=== PATIENT | male | born 1925 | race Caucasian/White ===

== ENCOUNTER 2016-07-09 18:32 | Inpatient (IN) ==
[2016-07-09] MEDS ORDERED: Naloxone 0.4 MG/ML INJ IVP PRN (20:52)
--- NOTE | 2016-07-09 21:06 | Internal Med History&Physical ---
<Brianna Elam - Last Filed: 07/09/16 21:30> Date of Encounter: 07/09/16 Time of Encounter: 20:59 Assessment and Plan (1) CAD (coronary artery disease) Current visit: Yes Status: Acute with hx NSTEMI. Presented to OSH with Chest pain.No acute ST changes reported, initial troponin 0.03. Cont to trend troponin, repeat EKG, consult Cardiology. Cont home ASA, plavix, nitrate Qualifiers: Qualified Code(s): I25.10 - Atherosclerotic heart disease of [place] coronary artery without angina pectoris (2) Congestive heart failure Current visit: No Status: Acute per hx. LAst TTE 12/2015 with EF 25%. OSH CXR with pulm edema.BNP 407. Received IV lasix prior to arrival to [place]. Cont IV lasix, repeat echo, consult cardiology Qualifiers: Congestive heart failure type: unspecified congestive heart failure type Congestive heart failure chronicity: acute Qualified Code(s): I50.9 - Heart failure, unspecified (3) COPD (chronic obstructive pulmonary disease) Current visit: No Status: Chronic per hx. No evidence of exacerbation on exam. Cont home inhaler. Qualifiers: COPD type: unspecified COPD Qualified Code(s): J44.9 - Chronic obstructive pulmonary disease, unspecified (4) DVT prophylaxis Current visit: Yes Status: Acute heparin Internal Medicine - H&P: HPI Admitted From: Home Plans for Post Hospital Care: Home History of present illness: Mr. Correa is a 89 year old male CHF, COPD and dementia who presented to OSH with complaints of chest pain and SOB. He was transferred to [facility] for further work-up and treatment. Information obtained from chart review and patient report. Patient reports constat, sharp chest pain that started day of admission that radiated to up neck and to bilateral jaws. Nothing made worse and he's not sure what helped CP. He says he forget to take lasix either today or yesterday. He does feel a little SOB, worse with exertion. Also reports productive cough Past Med Surg Social Fam HX - Past Medical History Medical history: aortic aneurysm, arthritis, COPD, coronary artery disease, DVT , GI bleed, hyperlipidemia, hypertension, renal disease, other Psychiatric history: anxiety - Past Surgical History Surgical History: appendectomy, carotid endarterectomy, cholecystectomy, hip replacement, knee replacement, other - Social History Smoking Status: Current every day smoker Smokeless Tobacco Status: No Alcohol use: none Drug use: none - Family History Father Twin of Family Member: Yes, Fraternal Living Status: Age at : 72 Hx Family Cardiac Disorders: Yes Hx Family Respiratory Disorders: Yes Hx Family Cancer: Yes Hx Family GI Disorders: No Hx Family Genitourinary Disorders: No Hx Family Endocrine Disorder: No Hx Family Musculoskeletal Disorders: No Hx Family Neuromuscular Disorders: No Hx Family Neurologic Disorders: No Hx Family HEENT Disorders: No Hx Family Autoimmune Disorders: No Hx Family Reproductive Disorders: No Hx Family Psychosocial Disorders: No Hx Family Medical Disorders: No - Additional Family History Additional family history: reviewed and non-contributory Internal Medicine - H&P: Meds Aspirin 81 mg PO DAILY 10/18/14 [History] Docusate [Colace] 200 mg PO DAILY 10/18/14 [History] Ipratropium/Albuterol Neb [Duoneb] 3 ml IH Q4H PRN 10/18/14 [History] Metoprolol XL (24 HR) Succ [Toprol XL] 50 mg PO DAILY 10/18/14 [History] Nitroglycerin [Nitrostat] 0.4 mg SL PRN PRN 10/18/14 [History] Cyanocobalamin (B-12) [Vitamin B12] 1,000 mcg PO DAILY #90 tablet 09/05/15 [Rx] Albuterol Sulfate [Proair Hfa] 1 puff IH Q4-6H PRN #1 inh 10/29/15 [Rx] Allopurinol [Zyloprim] 100 mg PO Q48H 12/24/15 [History] Aminocaproic Acid [Amicar] 500 mg PO BID 12/24/15 [History] Clopidogrel [Plavix] 75 mg PO DAILY 12/24/15 [History] Doxazosin [Cardura] 1 mg PO DAILY 12/24/15 [History] Furosemide [Lasix] 40 mg PO DAILY 12/24/15 [History] Oxycodone HCl [Oxaydo] 5 mg PO Q6H PRN 12/24/15 [History] Octreotide Acetate,Mi-Spheres [Sandostatin Lar [place]] 10 mg IM QMONTH #1 vial [Rx] Folic Acid 1 mg PO DAILY #90 tablet 05/30/16 [Rx] Clotrimazole [Mycelex Kentrell] 10 mg MM QID 07/10/16 [History] Doxepin HCl [Silenor] 3 mg PO HS 07/10/16 [History] Gabapentin [Neurontin] 300 mg PO TID 07/10/16 [History] Isosorbide MONOnitrate (24 HR) [Imdur] 30 mg PO QPM 07/10/16 [History] Isosorbide MONOnitrate (24 HR) [Imdur] 60 mg PO QAM 07/10/16 [History] Pantoprazole Sodium [Protonix] 40 mg PO DAILY 07/10/16 [History] Allergies gabapentin Allergy (Verified 01/22/16 00:34) Hallucinating Penicillins Allergy (Verified 01/22/16 00:34) Rash morphine Adverse Reaction (Verified 01/22/16 00:34) Anxiety All Systems PM: A 10-system review of systems was performed and is negative for pertinent findings except as documented above in the HPI. - Constitutional Constitutional: no chills, no fever(s), no night sweats - EENT Eyes: no change in vision, no discharge, no pain, no photophobia Ears: no ear discharge, no ear pain, no tinnitus Nose, mouth and throat: no dysphagia, no nasal discharge, no neck pain, no sore throat - Cardiovascular Cardiovascular ROS IM: chest pain, dyspnea on exertion - Respiratory Respiratory: no wheezing, no excessive phlegm production - Gastrointestinal Gastrointestinal: no abdominal pain, no diarrhea, no hematemesis, no hematochezia, no melena, no nausea, no vomiting - Musculoskeletal Musculoskeletal ROS IM: no numbness, no tingling - Integumentary Integumentary IM: no rash, no unusual bruising - Neurological Neurological ROS: no confusion, no convulsions, no focal weakness, no numbness, no tingling, no tremor(s) - Hematologic/Lymphatic Hematologic/Lymphatic: no easy bruising - Constitutional Vitals: Temp Pulse Resp BP Pulse Ox 98.2 F 82 15 124/64 97 07/09/16 20:02 07/09/16 20:02 07/09/16 20:02 07/09/16 20:02 07/09/16 20:02 - Head Head exam: Present: atraumatic, normocephalic - Eye Eye exam: Present: PERRL, conjuntiva pink, sclera anicteric Pupils: Present: PERRL - Neck Neck exam general surgery: Present: supple, trachea midline. Absent: lymphadenopathy - Respiratory Respiratory exam: Absent: accessory muscle use, CTAB, rales, wheezes - Cardiovascular Cardiovascular exam: Present: RRR, +S1, +S2. Absent: diastolic murmur, gallop, rubs, systolic murmur - GI/Abdominal GI/Abdominal exam: Present: normal bowel sounds, soft, no peritoneal signs. Absent: distended, tenderness - Extremities Exam Extremities exam: Present: warm, radial pulses palpable and symetrical. Absent : calf tenderness, cyanotic, pedal edema - Neurological Exam Neurological exam: Present: CN II-XII intact, oriented X3, no focal deficits. Absent: pronater drift, facial droop, speech deficit - Skin Skin exam: Present: dry, intact <Campos Teresa - Last Filed: 07/10/16 10:25> Date of Encounter: 07/09/16 Internal Medicine - H&P: HPI Chief complaint: Chest pain Admitted From: Emergency Dept Plans for Post Hospital Care: Home History of present illness: Mr. Correa is a 89 year old male with medical history significant for iron deficiency anemia, recurrent GI bleed/colonic resection of cecal angiodysplasia/ monthly IV octreotide injections, folic acid/B12 deficiencies, COPD home oxygen dependent, CVA/TIA, HTN, HLD, PAD/fem-pop bypass, CAD/ischCMP/systCHF/LVEF<30%, DVTs/PE, clotting disorder unspecified, OA/OP/RA, GERD, obesity, nicotine dependency, etc.. Patient is admitted to [facility] as a hospital transfer from [place] emergency department with concerns of chest pain. The patient originally presented via EMS services from home with concerns of generalized weakness and complained of shortness of breath at rest but aggravated with any activity. Multiple complaints for product including back pain and finally chest pain. The patient also reported acute exacerbation of his chronic cough but is provided this continued to smoke. Cough and shortness of breath seemed to be aggravated with lying flat in exertion and improved with oxygen therapy and bronchodilator therapy. Cough is nonproductive. He denied any fevers chills or sweats with these complaints. Patient reported intermittent chest discomfort for 2 weeks period of time bleeding. His presentation. The area and underwent a chest x-ray which revealed evidence for faint patchy airspace opacities seen diffusely throughout both lungs suggestive of pulmonary edema no discrete infiltrate was otherwise seen. A CT of the head was done due to confusion and headache for the same two- week period of time but revealed only acute/chronic right sphenoid sinusitis with surrounding mucoperiosteal reaction. Evidence of severe chronic ischemic changes with chronic infarcts were also noted with areas of encephalomalacia in bilateral hemispheres. Prior to transfer to the [facility] the patient received intravenous furosemide which produced a good diuresis and eats some of his respiratory complaints. His O2 saturations improved from 92% on room air to 97 % with oxygen support. Initial laboratory noted a white count of 12.5 hemoglobin 8.1 hematocrit 25.9 which is fairly stable trending back for the last year or more. Differential showed an increase in neutrophils. PT was 12.4 INR 1.1. Troponin 0.03 with BNP 427. Metabolic panel noted a BUN of 34 creatinine 1.9 GFR 34. Urinalysis was negative. EKG showed left bundle branch block. Normal sinus rhythm. No acute ischemic changes. The patient and family opted for transfer to [facility] for continuity of care and evaluations for rule out for ACS/UA associated flash pulmonary edema. The patient is at risk for further clinical decline due to his significant comorbidities advanced age and frailty. Workup and treatments will proceed. The patient was visited and interviewed and examined. I examined this patient and my medical decision-making was reviewed with the Advanced Practice Nurse, MS. Brianna Elam. For this encounter, I have reviewed the [employer] CMO documentation, treatment plan, and medical decision making. I have had face to face time with this patient. Cumulative laboratory and radiographic database was reviewed, considered and discussed. I agree with the documented findings, disposition and treatment plan as described except to the extent set forth below. . Consultative opinions will be sought as clinical circumstances justify. Plan of care has been discussed in detail with the patient and questions addressed. Hospital course will be dependent upon clinical findings, treatment response and /or potential consultative interventions. Given the patient's presenting concerns, past medical history, clinical findings and symptoms, he is admitted at this time to undergo further evaluation and disposition. Condition is serious. Prognosis is guarded. CODE STATUS is full. All Systems PM: A 10-system review of systems was performed and is negative for pertinent findings except as documented above in the HPI. - Constitutional Vitals: Temp Pulse Resp BP Pulse Ox 97.3 F L 85 24 111/56 100 07/10/16 08:15 07/10/16 08:15 07/10/16 08:15 07/10/16 08:15 07/10/16 08:20 Vital Signs Temp Pulse Resp BP Pulse Ox 07/10/16 08:20 100 07/10/16 08:15 97.3 F L 85 24 111/56 100 07/10/16 07:54 24 99 07/10/16 07:35 97.9 F 88 24 95/46 99 07/10/16 04:45 98.4 F 91 17 117/57 99 07/10/16 00:40 98.4 F 90 19 88/51 98 07/09/16 23:30 18 98 07/09/16 20:02 98.2 F 82 15 124/64 97 Intake and Output 07/09/16 07/10/16 07/10/16 23:59 07:59 15:59 Intake Total 0 / 0 0 / 0 0 / 0 Output Total 350 / 350 100 / 100 Balance 0 / 0 -350 / -350 -100 / -100 Intake: Oral 0 / 0 0 / 0 0 / 0 Output: Urine 350 / 350 100 / 100 Other: Meal NPO Percent of Meal Consumed 0% Weight 68.5 kg Internal Med - H&P Results - Labs CBC & Chem 7: 07/10/16 05:46 07/10/16 05:46 Labs: Short CBC 07/10/16 Range/Units 05:46 WBC 12.5 H (4.3-11.1) K/mcL Hgb 8.0 L (12.9-16.9) g/dL Hct 26.8 L (37.5-50.1) % Plt Count 182 (140-400) K/mcL Neutrophils # 10.1 H (1.6-8.9) K/mcL BMP 07/10/16 05:46 Sodium 139 Potassium 4.4 Chloride 104 Carbon Dioxide 24 BUN 36 H Creatinine 1.78 H Glucose 105 H Calcium 8.7 Cardiac Enzymes 07/09/16 07/10/16 Range/Units 21:46 05:46 Troponin I 0.02 0.02 (0-0.03) ng/mL Liver Function 07/10/16 Range/Units 05:46 Total Bilirubin 0.9 D (0.2-1.2) mg/dL AST 10 (5-34) Units/L ALT < 6 (0-55) Units/L Alkaline Phosphatase 62 (38-126) Units/L Albumin 3.5 (3.5-5.0) g/dL Abnormal lab results WBC 12.5 K/mcL (4.3-11.1) H 07/10/16 05:46 RBC 2.89 M/mcL (4.19-5.50) L 07/10/16 05:46 Hgb 8.0 g/dL (12.9-16.9) L 07/10/16 05:46 Hct 26.8 % (37.5-50.1) L 07/10/16 05:46 MCH 27.7 pg (28.0-33.3) L 07/10/16 05:46 MCHC 29.9 g/dL (31.6-35.5) L 07/10/16 05:46 Neutrophils # 10.1 K/mcL (1.6-8.9) H 07/10/16 05:46 Monocytes # 1.6 K/mcL (0.0-1.3) H 07/10/16 05:46 BUN 36 mg/dL (8-26) H 07/10/16 05:46 Creatinine 1.78 mg/dL (0.72-1.25) H 07/10/16 05:46 Est GFR ( Amer) 44 (> 60) L 07/10/16 05:46 Est GFR (Non-Af Amer) 36 (> 60) L 07/10/16 05:46 Glucose 105 mg/dL (70-99) H 07/10/16 05:46 Globulin 3.8 g/dL (2.4-3.5) H 07/10/16 05:46 Albumin/Globulin Ratio 0.9 (1.1-2.2) L 07/10/16 05:46 - Attending Attestation My signature below is to certify that this patient is under my care and that I, or nurse practitioner working with me, has had a [id number] encounter with this patient.
[2016-07-09] MEDS ORDERED: Ipratropium/Albuterol Neb 3 ML IH PRN (21:29)
[2016-07-09] MEDS: *HR* Heparin 5,000 UNIT/ML VIAL SQ SCH (23:03)
[2016-07-09] MEDS: Budesonide/Formoterol 160/4.5 MDI IH SCH (23:26)
[2016-07-10] MEDS: Nitroglycerin 0.4 MG TAB.SUBL SL PRN (02:27)
[2016-07-10] MEDS ORDERED: Acetaminophen 325 MG TABLET PO PRN (05:14)
[2016-07-10] MEDS: *HR* Heparin 5,000 UNIT/ML VIAL SQ SCH ×3 (05:34→21:06)
[2016-07-10 06:33] LABS: Basophils % 0.3 %; Eosinophils # 0.1 K/mcL (0.0-0.6); Eosinophils % 0.9 %; Hematocrit 26.8 % (37.5-50.1); Immature Granulocytes % 0.4 % (0-4); Lymphocytes # 0.6 K/mcL (0.6-4.6); Mean Corpuscular HGB Conc 29.9 g/dL (31.6-35.5); Mean Corpuscular Hemoglobin 27.7 pg (28.0-33.3); Mean Corpuscular Volume 92.7 fL (83.0-100.0); Mean Platelet Volume 10.3 fL (9.4-12.4); Monocytes # 1.6 K/mcL (0.0-1.3); Monocytes % 13.1 %; Neutrophils # 10.1 K/mcL (1.6-8.9); Platelet Count 182 K/mcL (140-400); Red Blood Count 2.89 M/mcL (4.19-5.50); Red Cell Distribution Width 14.1 % (11.5-14.5); Segmented Neutrophils % 80.3 %
[2016-07-10 06:48] LABS: Albumin 3.5 g/dL (3.5-5.0); Albumin/Globulin Ratio 0.9 (1.1-2.2); Alkaline Phosphatase 62 Units/L (38-126); Aspartate Amino Transferase 10 Units/L (5-34); BUN/Creatinine Ratio 20 (6-26); Bilirubin,Total 0.9 mg/dL (0.2-1.2); Blood Urea Nitrogen 36 mg/dL (8-26); Calcium 8.7 mg/dL (8.6-10.8); Carbon Dioxide 24 mEq/L (19-29); Chloride 104 mEq/L (98-109); Globulin 3.8 g/dL (2.4-3.5); Glucose 105 mg/dL (70-99); Osmolality,Calculated 297 (280-300); Potassium 4.4 mEq/L (3.5-4.5); Sodium 139 mEq/L (136-145); Total Protein 7.3 g/dL (6.0-8.3); eGFR For African Americans 44 (> 60); eGFR For Non-African Americans 36 (> 60)
[2016-07-10 06:49] LABS: Alanine Aminotransferase < 6 Units/L (0-55)
[2016-07-10] MEDS: Budesonide/Formoterol 160/4.5 MDI IH SCH ×2 (07:53→19:43)
[2016-07-10] MEDS: Furosemide 20 MG/2 ML VIAL IVP SCH ×2 (08:29→21:06)
[2016-07-10] MEDS: Aspirin 81 MG TAB.CHEW PO SCH (08:29)
[2016-07-10] MEDS: amLODIPine 5 MG TABLET PO SCH (08:29)
[2016-07-10] MEDS: Isosorbide MONOnitrate (24 HR) 60 MG TAB.ER.24H PO SCH (08:29)
[2016-07-10] MEDS: Metoprolol XL (24 HR) Succ 50 MG TAB.ER.24H PO SCH (08:29)
--- NOTE | 2016-07-10 10:45 | Cardiology Consult Note ---
Date of Encounter: 07/10/16 Time of Encounter: 09:00 Assessment and Plan (1) Acute on chronic systolic CHF (congestive heart failure), NYHA class 3 Current Visit: Yes Status: Acute Per cardiology: -Known ischemic cardiomyopathy. -Echocardiogram 12/1015 with LVEF 25%, severe LV global systolic dysfunction, left ventricle moderately dilated, indeterminate diastolic function, RV not well visualized, mild MR, mild NV, all salgado hypokinetic. -Troponins negative x3. -Patient admits to missing a dose of lasix at home and presents with increased shortness of breath. -On lasix IV BID per primary service. ON toprol. Unable to add KATHERIN/ARB due to renal function. -Patient had previously declined defibrillator. Discussed at length with patient regarding increased risk of sudden cardiac due to cardiomyopathy. Explained at length regarding defribrillator. At this time, patient still refusing defibrillator. -BNP 427 on admission. -Patient's weight 04/2016 146.6 pounds and weight this admission 150.7 pounds. -Patient currently net negative 350ml. Patient states breathing improved. No pedal edema noted. -Recommend continuing IV diuresis for now, -Do not feel that repeat echocardiogram would be of benefit due to known cardiomyopathy and patient's refusal for defibrillator. -Cardiology will sign off and will follow in outpatient setting. FOllow up set. (2) CAD (coronary artery disease) Current Visit: Yes Status: Chronic Per cardiology: -Known history of severe CAD with cath 2014 with 95% stenosis RCA, 75% ostial RCA, 60% LAD calcification, 50% mid circ. -CAD not ammendable to CABG or PCI. Medical management was recommended. -Troponins negative x3. -ECG with not acute ischemic changes -On asa, plavix, beta esperanza, and imdur. Currently not on statin and no statin noted on home medication list. -Of note, AST and ALT within normal limits. -No current chest pain. -Has chronic angina. -Continue current regimen. -Will add statin due to significant CAD. -Follow up in outpatient setting. Qualifiers: Coronary Disease-Associated Artery/Lesion type: [place] artery [place] vs. transplanted heart: [place] heart Associated angina: with stable angina (3) Chronic kidney disease Current Visit: No Status: Chronic Per cardiology: -KNown CKD. -Creatinine 1.78 this admission -Baseline creatiine 1.7-2.1. -Cautious diuresis with CKD. -Management per primary service. Qualifiers: Chronic kidney disease stage: stage 3 (moderate) Qualified Code(s): N18.3 - Chronic kidney disease, stage 3 (moderate) Discussion w patient/family: The assessment and plan as outlined above was discussed with the patient who expressed understanding and agreement. All questions were answered. Thank you for involving us in the care of your patient. Please call with any questions. Discussed and reviewed with . History of Present Illness Consult date: 07/09/16 Requesting physician: Brianna Elam Consult reason: chf Chief complaint: shortness of breath History of present illness: Mr. 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 Patient with known ischemic cardiomyopathy with EF 25% . Patient has histroically refused defibrillator. Patient with known severe 3 vessel ischemic disease not amendable to CABG or PCI. Patient states he was in his normal state of health, when he became increasing short of breath. Patient presented to [facility] and was subsequently transferred to [facility]. Cardiology was consulted. Patient states he was extremely short of breath at home and his could hear his breathing in the other room. Today patient states breathing is much better. Patient denies peripheral edema. Patient reports he thinks he missed a dose of his lasix at home. Patient denies current chest pain. Patient states he has chronic angina. Past Med Surg Social Fam HX - Past Medical History Attestation: Yes The following information was validated with the patient. Source: patient, old records reviewed Medical history: aortic aneurysm, arthritis, COPD, coronary artery disease, DVT , GI bleed, hyperlipidemia, hypertension, renal disease, other Psychiatric history: anxiety - Past Surgical History Surgical History: appendectomy, carotid endarterectomy, cholecystectomy, hip replacement, knee replacement, other - Social History Smoking Status: Current every day smoker Smokeless Tobacco Status: No Alcohol use: none Drug use: none - Family History Father Twin of Family Member: Yes, Fraternal Living Status: Age at : 72 Hx Family Cardiac Disorders: Yes Hx Family Respiratory Disorders: Yes Hx Family Cancer: Yes Hx Family GI Disorders: No Hx Family Genitourinary Disorders: No Hx Family Endocrine Disorder: No Hx Family Musculoskeletal Disorders: No Hx Family Neuromuscular Disorders: No Hx Family Neurologic Disorders: No Hx Family HEENT Disorders: No Hx Family Autoimmune Disorders: No Hx Family Reproductive Disorders: No Hx Family Psychosocial Disorders: No Hx Family Medical Disorders: No Medications and Allergies Aspirin 81 mg PO DAILY 10/18/14 [History] Docusate [Colace] 200 mg PO DAILY 10/18/14 [History] Ipratropium/Albuterol Neb [Duoneb] 3 ml IH Q4H PRN 10/18/14 [History] Metoprolol XL (24 HR) Succ [Toprol XL] 50 mg PO DAILY 10/18/14 [History] Nitroglycerin [Nitrostat] 0.4 mg SL PRN PRN 10/18/14 [History] Cyanocobalamin (B-12) [Vitamin B12] 1,000 mcg PO DAILY #90 tablet 09/05/15 [Rx] Albuterol Sulfate [Proair Hfa] 1 puff IH Q4-6H PRN #1 inh 10/29/15 [Rx] Allopurinol [Zyloprim] 100 mg PO Q48H 12/24/15 [History] Aminocaproic Acid [Amicar] 500 mg PO BID 12/24/15 [History] Clopidogrel [Plavix] 75 mg PO DAILY 12/24/15 [History] Doxazosin [Cardura] 1 mg PO DAILY 12/24/15 [History] Furosemide [Lasix] 40 mg PO DAILY 12/24/15 [History] Oxycodone HCl [Oxaydo] 5 mg PO Q6H PRN 12/24/15 [History] Octreotide Acetate,Mi-Spheres [Sandostatin Lar [place]] 10 mg IM QMONTH #1 vial [Rx] Folic Acid 1 mg PO DAILY #90 tablet 05/30/16 [Rx] Clotrimazole [Mycelex Kentrell] 10 mg MM QID 07/10/16 [History] Doxepin HCl [Silenor] 3 mg PO HS 07/10/16 [History] Gabapentin [Neurontin] 300 mg PO TID 07/10/16 [History] Isosorbide MONOnitrate (24 HR) [Imdur] 30 mg PO QPM 07/10/16 [History] Isosorbide MONOnitrate (24 HR) [Imdur] 60 mg PO QAM 07/10/16 [History] Pantoprazole Sodium [Protonix] 40 mg PO DAILY 07/10/16 [History] Allergies gabapentin Allergy (Verified 01/22/16 00:34) Hallucinating Penicillins Allergy (Verified 01/22/16 00:34) Rash morphine Adverse Reaction (Verified 01/22/16 00:34) Anxiety All Systems Review: A 10-system review of systems was performed and is negative for pertinent findings except as documented above in the HPI. - Cardiovascular Cardiovascular: as per HPI, dyspnea on exertion, orthopnea Physical Examination Vital Signs, Last 4 Hours Temp Pulse Resp BP Pulse Ox 07/10/16 08:20 100 07/10/16 08:15 97.3 F L 85 24 111/56 100 07/10/16 07:54 24 99 07/10/16 07:35 97.9 F 88 24 95/46 99 General: Conversant, No Apparent Distress HEENT: Atraumatic, Normocephaly, Mucus Membranes Moist Neck: No JVD, Normal carotid pulses Cardiac: Reg Rate and Rhythm, Normal S1 and S2, No Murmur Lungs: Normal Breath Sounds, No Wheeze, Rales, Rhonchi Neuro: Alert and responsive, No focal deficits noted Abdomen: Soft, Non-Tender Skin: No rashes noted on visualized skin Musculoskeletal: No Chest Wall Tenderness Extremities: No Clubbing, No Cyanosis, No Edema, Normal Pulses Results 07/10/16 05:46 07/10/16 05:46 Lab Results Active Medications Acetaminophen (Tylenol) 650 mg PO Q6HR PRN PRN Reason: mild pain (1-3) Stop: 01/09/17 05:15 Last Admin: 07/10/16 05:32 Dose: 650 mg Albuterol/Ipratropium (Duoneb) 3 ml IH [id number] PRN; Protocol PRN Reason: Shortness Of Breath/Wheezing Stop: 01/08/17 21:30 Amlodipine Besylate (Norvasc) 5 mg PO DAILY [facility] PRN Reason: Protocol Stop: 01/09/17 09:01 Last Admin: 07/10/16 08:29 Dose: Not Given Aspirin (Aspirin) 81 mg PO DAILY [facility] Stop: 01/09/17 09:01 Last Admin: 07/10/16 08:29 Dose: 81 mg Budesonide/Formoterol Fumarate (Symbicort) 1 puff IH BIDRESP [facility] PRN Reason: Protocol Stop: 01/08/17 22:01 Last Admin: 07/10/16 07:53 Dose: 1 puff Clopidogrel Bisulfate (Plavix) 75 mg PO DAILY [facility] Stop: 01/09/17 09:01 Last Admin: 07/10/16 08:28 Dose: 75 mg Furosemide (Lasix) 20 mg IVP BID [facility] Stop: 01/09/17 09:01 Last Admin: 07/10/16 08:29 Dose: 20 mg Heparin Sodium (Porcine) (Heparin) 5,000 unit SQ Q8HCO [facility] Stop: 01/08/17 22:01 Last Admin: 07/10/16 05:34 Dose: 5,000 unit Isosorbide Mononitrate (Imdur) 60 mg PO DAILY [facility] Stop: 01/09/17 09:01 Last Admin: 07/10/16 08:29 Dose: 60 mg Metoprolol Succinate (Toprol Xl) 50 mg PO DAILY [facility] Stop: 01/09/17 09:01 Last Admin: 07/10/16 08:29 Dose: Not Given Naloxone HCl (Narcan) 0.4 mg IVP Q2MIN PRN PRN Reason: Opioid Reversal Stop: 01/08/17 20:53 Nitroglycerin (Nitroglycerin) 0.4 mg SL Q5MIN PRN PRN Reason: Chest Pain Stop: 01/09/17 02:20 Last Admin: 07/10/16 02:27 Dose: 0.4 mg - Imaging and Cardiology Chest Xray: report reviewed Echo: report reviewed - EKG Interpretation EKG results cardiology: personally reviewed (ECG 07/09 with SR LBBB, HR 96. ECG with SR, LBBB, HR 85.), other (Telemetry reviewed with average HR previous 12 hours noted to be 94. PVCs and PACs noted.) Consult Discharge Plan - Plan Referrals: Shalom Saab, [employer] [Primary Care Provider] - (Web requested 07/09/16)
[2016-07-10] MEDS ORDERED: ALPRAZolam 0.25 MG TABLET PO ONE (13:55)
--- NOTE | 2016-07-10 13:59 | Internal Med Progress Note ---
Date of Encounter: 07/10/16 Time of Encounter: 13:56 - Assessment and plan (1) Anxiety Current Visit: Yes Status: Acute Assessment and plan: Patient may have underlying anxiety contributing to the chest pain will give one time dose of Xanax 0.25mg PO closely monitor (2) CAD (coronary artery disease) Current Visit: Yes Status: Chronic Assessment and plan: cardiology eval appreciated no acute intervention recommended continue asa, bb, statin,imdur noted history of CHF No changes in LVEF compared to prior Echo continue diuretic therapy O2 supplementation as needed monitor I/Os fluid restricted diet monitor daily weights will continue to closely monitor likely d/c in am Qualifiers: Coronary Disease-Associated Artery/Lesion type: [place] artery [place] vs. transplanted heart: [place] heart Associated angina: with stable angina Qualified Code(s): I25.118 - Atherosclerotic heart disease of [place] coronary artery with other forms of angina pectoris (3) COPD (chronic obstructive pulmonary disease) Current Visit: No Status: Chronic Assessment and plan: not in acute exacerbation continue home medications bronchodilators as needed Qualifiers: COPD type: unspecified COPD Qualified Code(s): J44.9 - Chronic obstructive pulmonary disease, unspecified (4) Chronic kidney disease Current Visit: No Status: Chronic Assessment and plan: renal function at baseline continue to monitor Qualifiers: Chronic kidney disease stage: stage 3 (moderate) Qualified Code(s): N18.3 - Chronic kidney disease, stage 3 (moderate) (5) Congestive heart failure Current Visit: No Status: Chronic Assessment and plan: as listed above Qualifiers: Congestive heart failure type: unspecified congestive heart failure type Congestive heart failure chronicity: acute Qualified Code(s): I50.9 - Heart failure, unspecified (6) DVT prophylaxis Current Visit: Yes Status: Acute Assessment and plan: Heparin SQ - Subjective Interval history: Patient seen and examined at bedside. Patient reports of having severe anxiety for the last few days and states he doesn't have any contributing factors to this anxiety. States he wishes to just be able to relax for a minute and has not been able to for the last few days. Reports of a constant fear and anxiety. Denies any chest pain or shortness of breath at this time. - Constitutional Vitals: Temp Pulse Resp BP Pulse Ox 97.9 F 80 22 95/54 97 07/10/16 12:03 07/10/16 12:03 07/10/16 12:03 07/10/16 12:03 07/10/16 12:03 General appearance: Present: A&O X 3 (anxious), pleasant, no acute distress - Head Head exam: Present: atraumatic, normocephalic - Eye Eye exam: Present: normal appearance, conjuntiva pink, sclera anicteric - Respiratory Respiratory exam: Present: decreased breath sounds. Absent: respiratory distress, wheezes - Cardiovascular Cardiovascular exam: Present: RRR, +S1, +S2. Absent: diastolic murmur, gallop, rubs, systolic murmur - GI/Abdominal GI/Abdominal exam: Present: normal bowel sounds, soft, no peritoneal signs. Absent: distended, tenderness - Extremities Exam Extremities exam: Present: warm, radial pulses palpable and symetrical. Absent : calf tenderness, cyanotic, pedal edema - Neurological Exam Neurological exam: Present: alert, oriented X3 - Psychiatric Psychiatric exam: Present: anxious, normal affect, normal mood Internal Medicine: Result - Labs CBC & Chem 7: 07/10/16 05:46 07/10/16 05:46 Labs: Short CBC 07/10/16 Range/Units 05:46 WBC 12.5 H (4.3-11.1) K/mcL Hgb 8.0 L (12.9-16.9) g/dL Hct 26.8 L (37.5-50.1) % Plt Count 182 (140-400) K/mcL Neutrophils # 10.1 H (1.6-8.9) K/mcL BMP 07/10/16 05:46 Sodium 139 Potassium 4.4 Chloride 104 Carbon Dioxide 24 BUN 36 H Creatinine 1.78 H Glucose 105 H Calcium 8.7 Cardiac Enzymes 07/09/16 07/10/16 07/10/16 Range/Units 21:46 05:46 11:19 Troponin I 0.02 0.02 0.04 H* (0-0.03) ng/mL Liver Function 07/10/16 Range/Units 05:46 Total Bilirubin 0.9 D (0.2-1.2) mg/dL AST 10 (5-34) Units/L ALT < 6 (0-55) Units/L Alkaline Phosphatase 62 (38-126) Units/L Albumin 3.5 (3.5-5.0) g/dL Consult Discharge Plan - Plan Referrals: Shalom Saab, JUAN [Primary Care Provider] - (Web requested 07/09/16)
[2016-07-10] MEDS: Gabapentin 100 MG CAPSULE PO SCH ×2 (14:09→21:05)
[2016-07-10] MEDS ORDERED: Gabapentin 100 MG CAPSULE PO SCH (15:00)
--- NOTE | 2016-07-10 16:19 | ECHO - Doppler Report ---
Echocardiogram Name: Jose David Correa Date of Study: 07/10/2016 Date: 1925 Ht: Medical Record#: [id number] Age: 89 Wt: 151.0 lb Gender: Male BSA: Order #: [id number] Location: [facility] IP Room #: 2A26 Reading Physician: Angelica Santana DO [employer] Plant Operator: Beatrice Orozco RVT Ordering Physician: Brooke Nicole MD Primary Physician: Randa Saab CNP Indications: NON ST ELEVATED MYOCARDIAL INFARCTION, COPD Impressions: LVEF 20-25%. Severe global LV systolic dysfunction. Left ventricle is mildly dilated. Indeterminate left ventricular diastolic function Normal right ventricular size and function. Mild aortic regurgitation. Mild mitral regurgitation. No pulmonary hypertension by TR gradient. IVC is not visualized. Left Ventricular Wall Motion: Rest Echo Findings The apex, apical inferior, mid inferior, basal inferior, apical anterior, mid anterior, basal anterior, apical septal, mid inferior septal, basal inferior septal, apical lateral, mid anterior lateral, basal anterior lateral, mid anterior septal, mid inferior lateral, basal anterior septal and basal inferior lateral salgado were hypokinetic. Findings: Study Quality * Technically incomplete. Patient declined completing the study. ECG Findings * Probable NSR with BBB. Left Ventricle * LVEF 20-25%. * Normal LV chamber size, wall thickness and function. * Mildly dilated left ventricle. * Indeterminate diastolic function. Mitral Valve * Mildly thickened mitral valve leaflets. * No mitral stenosis. * Mild mitral annular calcification * Mild mitral regurgitation. Aortic Valve * Aortic valve not well visualized. * Mild aortic regurgitation. * No aortic stenosis. Tricuspid Valve * Trace tricuspid regurgitation. * Normal tricuspid valve structure. Pulmonic Valve * Pulmonic valve is not well visualized. * No pulmonic stenosis. * Trace pulmonic regurgitation. Pulmonary Artery * Pulmonary artery not well visualized. Right Atrium * Normal right atrial size. Left Atrium * Moderately dilated left atrium. Right Ventricle * Normal right ventricular structure and function. Not seen in the subcostal view. Normal Lat S Giovanny. Interatrial Septum * Interatrial septum not well evaluated. Pericardium * There is no pericardial effusion present. IVC * The IVC is not well evaluated. Aorta * Normally sized aortic root. History Hypertension Hypercholesteremia History of Smoking Years 74 Packs 1 History of CAD/PTCA Myocardial Infarction Congestive Heart Failure 12/2015 a Previous Echo was performed. Measurements: BP: 95/ 54 2D Normal Values RVIDd: 1.60 cm <2.7 cm IVSd: 1.30 cm 0.6 - 1.0 cm LVIDd: 6.20 cm 3.7 - 5.6 cm LVPWd: 1.30 cm 0.6 - 1.1 cm LVIDs: 4.30 cm 1.5 - 3.6 cm AO: 2.20 cm < 4.0 cm LA: 3.10 cm 2.0 - 4.0cm LVOT Diam: 2.30 cm LA volume: 67 Mitral Valve Dec Time:208.00 msec Peak E:.78 m/sec Peak A:1.11 m/sec E/E' Lat Ratio:26.7 E/E' Med Ratio:38 Tricuspid Valve TV Regurg Peak Grad: 8.00mmHg TV Regurg Peak Giovanny: 1.37m/sec Updated by Angelica Santana on 07/10/2016 4:12:45 PM electronically signed on 07/10/2016 4:14:29 PM with status of Final Wall Motion [place]: 1=Normal, 2=Hypokinesis, 3=Akinesis, 4=Dyskinesis, 5=Aneurysmal, 6=Hyperkinetic, X=Not Visualized (Blank)=Missing
[2016-07-10] MEDS ORDERED: Furosemide 20 MG/2 ML VIAL IVP ONE ×2 (18:21→18:27)
[2016-07-10] MEDS: *HR* OxyCODONE Immed Rel 5 MG TABLET PO PRN (18:29)
--- NOTE | 2016-07-10 19:37 | Electrocardiograph Report ---
[place] [id number] Test Date: 2016-07-10 Pat Name: Jose David Correa Department: 112 Room: 2A Gender: M Lab Clerk: CAT : 1925 Requested By: Brianna Elam Order Number: [id number] Reading MD: Cornelius Low MD Measurements Intervals [place] Rate: 85 P: 60 ND: 166 QRS: -52 QRSD: 158 T: 92 QT: 416 QTc: 459 Interpretive Statements SINUS RHYTHM MARKED LEFT AXIS DEVIATION LEFT BUNDLE BRANCH BLOCK Electronically Signed On 07-10-2016 19:36:05 EDT by Cornelius Low MD
[2016-07-10] MEDS ORDERED: Ondansetron 4 MG/2 ML VIAL IVP PRN (20:21)
[2016-07-10] MEDS ORDERED: *HR* LORazepam 2 MG/ML VIAL IVP PRN (20:21)
[2016-07-10] MEDS ORDERED: Haloperidol Lactate 5 MG/ML VIAL IVP PRN (20:21)
[2016-07-10] MEDS ORDERED: *HR* Metoprolol 5 MG/5 ML VIAL IVP PRN (20:28)
[2016-07-11] MEDS: *HR* Heparin 5,000 UNIT/ML VIAL SQ SCH ×3 (06:03→21:20)
[2016-07-11 06:12] LABS: Hematocrit 24.9 % (37.5-50.1); Hemoglobin 7.6 g/dL (12.9-16.9); Mean Corpuscular HGB Conc 30.5 g/dL (31.6-35.5); Mean Corpuscular Hemoglobin 28.1 pg (28.0-33.3); Mean Corpuscular Volume 92.2 fL (83.0-100.0); Mean Platelet Volume 10.5 fL (9.4-12.4); Platelet Count 187 K/mcL (140-400); Red Cell Distribution Width 14.2 % (11.5-14.5)
[2016-07-11 06:38] LABS: Albumin 3.4 g/dL (3.5-5.0); Albumin/Globulin Ratio 0.9 (1.1-2.2); Bilirubin,Total 0.7 mg/dL (0.2-1.2); Calcium 8.7 mg/dL (8.6-10.8); Globulin 3.9 g/dL (2.4-3.5); Magnesium 2.5 mg/dL (1.6-2.6); Phosphorous 3.7 mg/dL (2.3-4.7); Potassium 4.2 mEq/L (3.5-4.5); Total Protein 7.3 g/dL (6.0-8.3)
[2016-07-11] MEDS: Budesonide/Formoterol 160/4.5 MDI IH SCH ×2 (08:02→20:31)
[2016-07-11 10:00] LABS: Hematocrit 26.4 % (37.5-50.1); Hemoglobin 8.1 g/dL (12.9-16.9)
[2016-07-11] MEDS ORDERED: Furosemide 40 MG TABLET PO SCH (10:00)
[2016-07-11] MEDS: Thiamine (B-1) 100 MG TABLET PO SCH (10:01)
[2016-07-11] MEDS: Cyanocobalamin (B-12) 1,000 MCG TABLET PO SCH (10:01)
[2016-07-11] MEDS: Isosorbide MONOnitrate (24 HR) 60 MG TAB.ER.24H PO SCH (10:01)
[2016-07-11] MEDS: Folic Acid 1 MG TABLET PO SCH (10:01)
[2016-07-11] MEDS: Metoprolol XL (24 HR) Succ 50 MG TAB.ER.24H PO SCH (10:01)
[2016-07-11] MEDS: amLODIPine 5 MG TABLET PO SCH (10:01)
[2016-07-11] MEDS: Vitamin B Complex/Vit C/Vit E 1 EACH TABLET PO SCH (10:01)
[2016-07-11] MEDS: Aspirin 81 MG TAB.CHEW PO SCH (10:01)
[2016-07-11] MEDS: Gabapentin 100 MG CAPSULE PO SCH (10:11)
[2016-07-11] MEDS ORDERED: 0.9 % Sodium Chloride 250 ML ONE ×2 (11:53→13:49)
[2016-07-11] MEDS: Levofloxacin 500 MG/100 ML 500 MG/100 ML BAG IVPB SCH (12:18)
--- NOTE | 2016-07-11 13:43 | Cardiology Progress Note ---
Date of Encounter: 07/11/16 Time of Encounter: 13:39 Assessment and Plan (1) Elevated troponin Current Visit: Yes Status: Acute Cardiology reconsulted. Troponins were 0.02, 0.02, 0.04, 0.05, then 0.96 after episode of chest pain this AM. Troponin elevation in setting of anemia with HGB as low as 7.6 today, known CKD with creatinine 2.02 today and in setting of possible developing PNA on CXR. Demand ischemic vs. NSTEMI. Pt reports pain relieved with nitro. Currently chest pain free. [facility] 2014 with severe 3 vessel CAD not amendable to PCI or CABG. Known EF 25% Recommend continued medical management. Not a candidate for cardiac rehab.. Hypotensive. Stop Norvasc. If BP will allow, recommend increasing Imdur. ASA, Statin, Plavix, BB, nitrates. No heparin gtt given HGB of 7.6 this AM. No further recommendations. Cardiology signing off. Reconsult PRN. (2) CAD (coronary artery disease) Current Visit: Yes Status: Chronic Known hx of severe CAD. [facility] 2014 with 95% stenosis RCA, 75% ostial RCA, 60% LAD calcification, 50% mid circ. CAD not ammendable to CABG or PCI. Medical management was recommended. ASA, Statin, Plavix, BB, Nitrates. Qualifiers: Coronary Disease-Associated Artery/Lesion type: [place] artery [place] vs. transplanted heart: [place] heart Associated angina: with stable angina Qualified Code(s): I25.118 - Atherosclerotic heart disease of [place] coronary artery with other forms of angina pectoris (3) Acute on chronic systolic CHF (congestive heart failure), NYHA class 3 Current Visit: Yes Status: Acute Known ICMP. Echo 12/2015 with LVEF 25%, severe LV global systolic dysfunction. Missed a dose of lasix at home and presented with increased shortness of breath. However, CXR with possible PNA. On lasix 40mg PO daily. Now with worsening renal function. Continue BB. No KATHERIN/ ARB due to renal function. Patient had previously declined defibrillator. Discussed at length with patient regarding increased risk of sudden cardiac due to cardiomyopathy. Pt declines ICD. Does not appear fluid overloaded on exam. Continue PO Lasix. No repeat echo warranted with known CMP and refusal of ICD. (4) Ischemic cardiomyopathy Current Visit: Yes Status: Chronic ICMP EF 25%. Severe 3 vessel CAD not amendable to PCI or CABG. BB. No KATHERIN-I/ARB due to renal disease. Pt declines ICD. Discussion w patient/family: The assessment and plan as outlined above was discussed with the patient and/or family members who expressed understanding and agreement. All questions were answered. Thank you for involving us in the care of your patient. Please call with any questions. Subjective Principal diagnosis: Elevated troponin, CHF, CAD Interval history: Pt developed chest pain this AM. Troponin previously 0.05, increased to 0.96. Cardiology reconsulted. Pt reports nitro helped his pain. Currently chest pain free. Creatinine worsened 2.02. HGB 7.6 earlier today, rechecked 8.1. Objective Vital Signs, Last 4 Hours Temp Pulse Resp BP Pulse Ox 07/11/16 12:25 94/46 07/11/16 11:41 97.7 F 82 16 75/35 96 07/11/16 10:14 100 Vital Signs Temp Pulse Resp BP Pulse Ox 07/11/16 12:25 94/46 07/11/16 11:41 97.7 F 82 16 75/35 96 07/11/16 10:14 100 07/11/16 08:35 97.8 F 86 16 123/71 100 07/11/16 08:05 16 100 07/11/16 05:18 98.1 F 89 17 105/57 100 07/10/16 23:40 98.2 F 98 16 104/60 98 07/10/16 19:48 100.0 F H 101 17 115/68 95 07/10/16 19:43 18 100 07/10/16 18:24 97.9 F 108 22 121/70 97 07/10/16 17:00 98.4 F 87 22 117/56 99 07/10/16 14:13 112/52 Intake and Output 07/10/16 07/11/16 07/11/16 23:59 07:59 15:59 Intake Total 120 / 120 Output Total 350 / 350 175 / 175 0 / 0 Balance -230 / -230 -175 / -175 0 / 0 Intake: Oral 120 / 120 Output: Urine 350 / 350 175 / 175 0 / 0 Other: Meal Dinner Percent of Meal Consumed 0% Weight 63.588 kg Patient Weight 07/11/16 23:59 Weight 63.588 kg General: Conversant, No Apparent Distress HEENT: Atraumatic, Normocephaly, Mucus Membranes Moist Neck: No JVD, Normal carotid pulses Cardiac: Reg Rate and Rhythm, Normal S1 and S2, No Murmur Lungs: Other (diminished) Neuro: Alert and responsive, No focal deficits noted Abdomen: Soft, Non-Tender Skin: No rashes noted on visualized skin Musculoskeletal: No Chest Wall Tenderness Extremities: No Clubbing, No Cyanosis, No Edema, Normal Pulses Results 07/11/16 09:51 07/11/16 04:55 Lab Results 07/10/16 07/11/16 07/11/16 18:39 04:55 04:55 WBC 14.7 H Hgb 7.6 L Hct 24.9 L Plt Count 187 Sodium 137 Potassium 4.2 Chloride 101 Carbon Dioxide 24 BUN 44 H Creatinine 2.02 H Glucose 101 H Calcium 8.7 Magnesium 2.5 Total Bilirubin 0.7 AST 18 ALT 6 Alkaline Phosphatase 62 Troponin I 0.05 H* 07/11/16 07/11/16 09:51 09:51 WBC Hgb 8.1 L Hct 26.4 L Plt Count Sodium Potassium Chloride Carbon Dioxide BUN Creatinine Glucose Calcium Magnesium Total Bilirubin AST ALT Alkaline Phosphatase Troponin I 0.96 H* Short CBC 07/11/16 07/11/16 Range/Units 09:51 04:55 WBC 14.7 H (4.3-11.1) K/mcL Hgb 8.1 L 7.6 L (12.9-16.9) g/dL Hct 26.4 L 24.9 L (37.5-50.1) % Plt Count 187 (140-400) K/mcL BMP 07/11/16 Range/Units 04:55 Sodium 137 (136-145) mEq/L Potassium 4.2 (3.5-4.5) mEq/L Chloride 101 (98-109) mEq/L Carbon Dioxide 24 (19-29) mEq/L BUN 44 H (8-26) mg/dL Creatinine 2.02 H (0.72-1.25) mg/dL Glucose 101 H (70-99) mg/dL Calcium 8.7 (8.6-10.8) mg/dL Cardiac Enzymes 07/11/16 07/10/16 Range/Units 09:51 18:39 Troponin I 0.96 H* 0.05 H* (0-0.03) ng/mL Liver Function 07/11/16 Range/Units 04:55 Total Bilirubin 0.7 (0.2-1.2) mg/dL AST 18 (5-34) Units/L ALT 6 (0-55) Units/L Alkaline Phosphatase 62 (38-126) Units/L Albumin 3.4 L (3.5-5.0) g/dL Impressions Chest X-Ray 07/11/16 08:18 IMPRESSION: Infrahilar infiltrates, worse on the right than the left, may reflect developing pneumonia. D/ / 07/11/2016 09:01:19 Sherley Salmeron MD / Kasandra Borrego Interpreting Provider: Sherley Salmeron MD Active Medications Acetaminophen (Tylenol) 650 mg PO Q6HR PRN PRN Reason: mild pain (1-3) Stop: 01/09/17 05:15 Last Admin: 07/10/16 05:32 Dose: 650 mg Albuterol/Ipratropium (Duoneb) 3 ml IH [id number] PRN; Protocol PRN Reason: Shortness Of Breath/Wheezing Stop: 01/08/17 21:30 Last Admin: 07/10/16 19:43 Dose: 3 ml Aminocaproic Acid (Amicar) 500 mg PO BID [facility] Stop: 01/09/17 21:01 Last Admin: 07/11/16 10:01 Dose: 500 mg Amlodipine Besylate (Norvasc) 5 mg PO DAILY [facility] PRN Reason: Protocol Stop: 01/09/17 09:01 Last Admin: 07/11/16 10:01 Dose: 5 mg Aspirin (Aspirin) 81 mg PO DAILY [facility] Stop: 01/09/17 09:01 Last Admin: 07/11/16 10:01 Dose: 81 mg Atorvastatin Calcium (Lipitor) 20 mg PO HS [facility] Stop: 01/09/17 21:01 Last Admin: 07/10/16 21:05 Dose: 20 mg Budesonide/Formoterol Fumarate (Symbicort) 1 puff IH BIDRESP [facility] PRN Reason: Protocol Stop: 01/08/17 22:01 Last Admin: 07/11/16 08:02 Dose: 1 puff Clopidogrel Bisulfate (Plavix) 75 mg PO DAILY [facility] Stop: 01/09/17 09:01 Last Admin: 07/11/16 10:01 Dose: 75 mg Cyanocobalamin (Vitamin B12) 1,000 mcg PO DAILY [facility] Stop: 01/10/17 09:01 Last Admin: 07/11/16 10:01 Dose: 1,000 mcg Docusate Sodium (Colace) 100 mg PO BID PRN PRN Reason: Constipation Stop: 01/09/17 20:22 Doxazosin Mesylate (Cardura) 1 mg PO DAILY [facility] Stop: 01/10/17 09:01 Last Admin: 07/11/16 10:01 Dose: 1 mg Folic Acid (Folic Acid) 1 mg PO DAILY [facility] Stop: 01/10/17 09:01 Last Admin: 07/11/16 10:01 Dose: 1 mg Furosemide (Lasix) 40 mg PO DAILY [facility] Stop: 01/10/17 10:01 Last Admin: 07/11/16 10:03 Dose: 40 mg Haloperidol Lactate (Haldol) 1 mg IVP Q6HR PRN PRN Reason: Agitation Stop: 01/09/17 20:22 Last Admin: 07/10/16 20:49 Dose: 1 mg Heparin Sodium (Porcine) (Heparin) 5,000 unit SQ Q8HCO [facility] Stop: 01/08/17 22:01 Last Admin: 07/11/16 06:03 Dose: 5,000 unit Levofloxacin/Dextrose (Levaquin 500mg/100ml) 500 mg in 100 mls @ 100 mls/hr IVPB DAILY [facility] PRN Reason: Protocol Stop: 01/10/17 11:01 Last Admin: 07/11/16 12:18 Dose: 100 mls/hr Isosorbide Mononitrate (Imdur) 60 mg PO DAILY [facility] Stop: 01/09/17 09:01 Last Admin: 07/11/16 10:01 Dose: 60 mg Lorazepam (Ativan) 0.5 mg IVP Q6H PRN PRN Reason: Anxiety Stop: 01/09/17 20:31 Last Admin: 07/10/16 22:52 Dose: 0.5 mg Metoprolol Succinate (Toprol Xl) 50 mg PO DAILY [facility] Stop: 01/09/17 09:01 Last Admin: 07/11/16 10:01 Dose: 50 mg Metoprolol Tartrate (Lopressor) 5 mg IVP Q6HR PRN PRN Reason: Tachyarrhythmias Stop: 01/09/17 20:29 Last Admin: 07/10/16 20:49 Dose: 5 mg Naloxone HCl (Narcan) 0.4 mg IVP Q2MIN PRN PRN Reason: Opioid Reversal Stop: 01/08/17 20:53 Nitroglycerin (Nitroglycerin) 0.4 mg SL Q5MIN PRN PRN Reason: Chest Pain Stop: 01/09/17 02:20 Last Admin: 07/10/16 02:27 Dose: 0.4 mg Omeprazole (Prilosec) 20 mg PO DAILY@0630 [facility] PRN Reason: Protocol Stop: 01/10/17 06:31 Last Admin: 07/11/16 06:03 Dose: 20 mg Ondansetron HCl (Zofran) 4 mg IVP Q8HR PRN PRN Reason: Nausea And Vomiting Stop: 01/09/17 20:22 Oxycodone HCl (Roxicodone) 5 mg PO Q6HR PRN PRN Reason: Moderate to Severe Pain (4-10) Stop: 01/09/17 12:35 Last Admin: 07/10/16 18:29 Dose: 5 mg Quetiapine Fumarate (Seroquel) 12.5 mg PO BID [facility] PRN Reason: Protocol Stop: 01/10/17 10:01 Last Admin: 07/11/16 10:09 Dose: 12.5 mg Thiamine HCl (Vitamin B-1) 100 mg PO DAILY [facility] Stop: 01/10/17 09:01 Last Admin: 07/11/16 10:01 Dose: 100 mg Vitamin B Complex/Vit C/Vit E (Stresstab) 1 each PO DAILY [facility] Stop: 01/10/17 09:01 Last Admin: 07/11/16 10:01 Dose: 1 each - Imaging and Cardiology Echo: report reviewed Consult Discharge Plan - Plan Referrals: Shalom Saab, [employer] [Primary Care Provider] - (Web requested 07/09/16)
[2016-07-11 16:31] LABS: Bilirubin,Urine Negative (Negative); Blood,Urine Negative (Negative); Clarity,Urine Clear (Clear); Color,Urine Yellow (Yellow); Glucose,Urine (UA) Normal (Normal); Ketones,Urine Negative (Negative); Leukocyte Esterase,Urine Negative (Negative); Nitrite,Urine Negative (Negative); Protein,Urine Negative (Neg-Trace); Specific Gravity,Urine 1.012 (1.010-1.025); Urobilinogen,Urine Normal (Normal)
--- NOTE | 2016-07-11 17:26 | Internal Med Progress Note ---
Date of Encounter: 07/11/16 Time of Encounter: 11:35 - Assessment and plan (1) Hypotension Current Visit: Yes Status: Acute Assessment and plan: Likely drug induced will discontinue amlodipine hold metoprolol if SBP<120 and hold Lasix if SBP<110 closely monitor BP and will administer BP lowering medications with caution Qualifiers: Hypotension type: unspecified hypotension type Qualified Code(s): I95.9 - Hypotension, unspecified (2) PNA (pneumonia) Current Visit: Yes Status: Acute Assessment and plan: New findings of pneumonia on CXR given worsening leukocytosis and mental status change, will treat with IV abx follow up blood cultures continue IV abx Qualifiers: Pneumonia type: due to unspecified organism Laterality: unspecified laterality Lung location: unspecified part of lung Qualified Code(s): J18.9 - Pneumonia, unspecified organism (3) CAD (coronary artery disease) Current Visit: Yes Status: Chronic Assessment and plan: cardiology eval appreciated no acute intervention recommended continue asa, bb, statin,imdur noted history of CHF No changes in LVEF compared to prior Echo continue diuretic therapy O2 supplementation as needed monitor I/Os fluid restricted diet monitor daily weights will continue to closely monitor Elevated TNI likely demand ischemia given renal function and PNA, will continue medical management Qualifiers: Coronary Disease-Associated Artery/Lesion type: [place] artery [place] vs. transplanted heart: [place] heart Associated angina: with stable angina Qualified Code(s): I25.118 - Atherosclerotic heart disease of [place] coronary artery with other forms of angina pectoris (4) COPD (chronic obstructive pulmonary disease) Current Visit: No Status: Chronic Assessment and plan: not in acute exacerbation continue home medications bronchodilators as needed Qualifiers: COPD type: unspecified COPD Qualified Code(s): J44.9 - Chronic obstructive pulmonary disease, unspecified (5) Chronic kidney disease Current Visit: No Status: Chronic Assessment and plan: renal function worsened from previous day likely secondary to diuretic therapy switched to PO diuretic therapy with dose reduction will closely monitor renal function Qualifiers: Chronic kidney disease stage: stage 3 (moderate) Qualified Code(s): N18.3 - Chronic kidney disease, stage 3 (moderate) (6) Congestive heart failure Current Visit: No Status: Chronic Assessment and plan: as listed above Qualifiers: Congestive heart failure type: unspecified congestive heart failure type Congestive heart failure chronicity: acute Qualified Code(s): I50.9 - Heart failure, unspecified (7) DVT prophylaxis Current Visit: Yes Status: Acute Assessment and plan: Heparin SQ - Subjective Interval history: Patient seen and examined at bedside. Noted to be hypotensive and lethargic today. Patient was normotensive this morning and was AAO x 3 however after receiving his morning medications he became hypotensive and lethargic, requiring 500cc IVF bolus for BP resuscitation. He responded appropriately to IVF and mental status improved. I had a detailed discussion with patient's POA (Crystal Jackson-daughter) who states that patient has expressed that he does not want any life saving interventions including intubation or chest compression if he were to ever have a cardiac arrest. As per patient's wishes, his code status was changed to DNR/ DNI. He was also noted to have elevation of TNI due to which cardiology was reconsulted. - Constitutional Vitals: Temp Pulse Resp BP Pulse Ox 97.7 F 74 18 97/51 94 07/11/16 15:46 07/11/16 15:46 07/11/16 15:46 07/11/16 15:46 07/11/16 15:46 General appearance: Present: A&O X 2 (confused), pleasant, no acute distress - Head Head exam: Present: atraumatic, normocephalic - Eye Eye exam: Present: normal appearance, conjuntiva pink, sclera anicteric - Respiratory Respiratory exam: Present: decreased breath sounds. Absent: respiratory distress, wheezes - Cardiovascular Cardiovascular exam: Present: RRR, +S1, +S2. Absent: diastolic murmur, gallop, rubs, systolic murmur - GI/Abdominal GI/Abdominal exam: Present: normal bowel sounds, soft, no peritoneal signs. Absent: distended, tenderness - Extremities Exam Extremities exam: Present: warm, radial pulses palpable and symetrical. Absent : calf tenderness, cyanotic, pedal edema - Neurological Exam Neurological exam: Present: alert Internal Medicine: Result - Labs CBC & Chem 7: 07/11/16 09:51 07/11/16 04:55 Labs: Short CBC 07/11/16 07/11/16 Range/Units 04:55 09:51 WBC 14.7 H (4.3-11.1) K/mcL Hgb 7.6 L 8.1 L (12.9-16.9) g/dL Hct 24.9 L 26.4 L (37.5-50.1) % Plt Count 187 (140-400) K/mcL BMP 07/11/16 04:55 Sodium 137 Potassium 4.2 Chloride 101 Carbon Dioxide 24 BUN 44 H Creatinine 2.02 H Glucose 101 H Calcium 8.7 Cardiac Enzymes 07/10/16 07/11/16 Range/Units 18:39 09:51 Troponin I 0.05 H* 0.96 H* (0-0.03) ng/mL Liver Function 07/11/16 Range/Units 04:55 Total Bilirubin 0.7 (0.2-1.2) mg/dL AST 18 (5-34) Units/L ALT 6 (0-55) Units/L Alkaline Phosphatase 62 (38-126) Units/L Albumin 3.4 L (3.5-5.0) g/dL Urine 07/11/16 Range/Units 16:19 Urine Color Yellow (Yellow) Urine Clarity Clear (Clear) Urine pH 6.0 (5.0-8.0) pH Units Ur Specific [place] 1.012 (1.010-1.025) Urine Protein Negative (Neg-Trace) mg/dL Urine Glucose (UA) Normal (Normal) mg/dL - Impressions Impressions Chest X-Ray 07/11/16 08:18 IMPRESSION: Infrahilar infiltrates, worse on the right than the left, may reflect developing pneumonia. D/ / 07/11/2016 09:01:19 Sherley Salmeron MD / Kasandra Borrego Interpreting Provider: Sherley Salmeron MD Consult Discharge Plan - Plan Referrals: Shalom Saab CNP [Primary Care Provider] - (Web requested 07/09/16)
--- NOTE | 2016-07-11 17:46 | Electrocardiograph Report ---
[place] [id number] Test Date: 2016-07-10 Pat Name: Jose David Correa Department: 112 Room: 2A Gender: M Crts: : 1925 Requested By: Campos Teresa Order Number: [id number] Reading MD: Veronica Jefferson Measurements Intervals [place] Rate: 106 P: 76 RI: 160 QRS: -49 QRSD: 150 T: 90 QT: 357 QTc: 419 Interpretive Statements SINUS TACHYCARDIA MARKED LEFT AXIS DEVIATION LEFT BUNDLE BRANCH BLOCK Electronically Signed On 07-11-2016 17:44:54 EDT by Veronica Jefferson
[2016-07-12 05:26] LABS: Basophils % 0.3 %; Eosinophils % 1.6 %; Hematocrit 23.2 % (37.5-50.1); Hemoglobin 7.2 g/dL (12.9-16.9); Immature Granulocytes % 0.5 % (0-4); Lymphocytes % 11.3 %; Mean Corpuscular Hemoglobin 27.8 pg (28.0-33.3); Mean Corpuscular Volume 89.6 fL (83.0-100.0); Mean Platelet Volume 10.5 fL (9.4-12.4); Monocytes % 11.1 %; Platelet Count 189 K/mcL (140-400); Red Blood Count 2.59 M/mcL (4.19-5.50); Red Cell Distribution Width 14.2 % (11.5-14.5); Segmented Neutrophils % 75.2 %
[2016-07-12 05:27] LABS: Eosinophils # 0.1 K/mcL (0.0-0.6); Lymphocytes # 0.7 K/mcL (0.6-4.6); Monocytes # 0.7 K/mcL (0.0-1.3); Neutrophils # 4.8 K/mcL (1.6-8.9)
[2016-07-12 05:49] LABS: Calcium 8.6 mg/dL (8.6-10.8); Magnesium 2.3 mg/dL (1.6-2.6); Phosphorous 3.1 mg/dL (2.3-4.7); Potassium 4.1 mEq/L (3.5-4.5)
[2016-07-12] MEDS: *HR* Heparin 5,000 UNIT/ML VIAL SQ SCH ×3 (06:20→21:31)
[2016-07-12] MEDS: *HR* OxyCODONE Immed Rel 5 MG TABLET PO PRN ×2 (06:23→21:30)
[2016-07-12] MEDS: Budesonide/Formoterol 160/4.5 MDI IH SCH ×2 (08:23→19:52)
[2016-07-12] MEDS: Furosemide 40 MG TABLET PO SCH (10:44)
[2016-07-12] MEDS: Metoprolol XL (24 HR) Succ 50 MG TAB.ER.24H PO SCH (10:46)
[2016-07-12] MEDS: Levofloxacin 500 MG/100 ML 500 MG/100 ML BAG IVPB SCH (10:51)
[2016-07-12] MEDS: Isosorbide MONOnitrate (24 HR) 60 MG TAB.ER.24H PO SCH (10:56)
[2016-07-12] MEDS: Thiamine (B-1) 100 MG TABLET PO SCH (10:56)
[2016-07-12] MEDS: Cyanocobalamin (B-12) 1,000 MCG TABLET PO SCH (10:56)
[2016-07-12] MEDS: Aspirin 81 MG TAB.CHEW PO SCH (10:56)
[2016-07-12] MEDS: Vitamin B Complex/Vit C/Vit E 1 EACH TABLET PO SCH (10:56)
[2016-07-12] MEDS: Folic Acid 1 MG TABLET PO SCH (10:58)
--- NOTE | 2016-07-12 11:07 | Internal Med Progress Note ---
Date of Encounter: 07/12/16 Time of Encounter: 11:04 - Assessment and plan (1) Hypotension Current Visit: Yes Status: Acute Assessment and plan: Likely drug induced-REsolved at this time BP within acceptable range Discontinued Amlodipine yesterday hold metoprolol if SBP<120 and hold Lasix if SBP<110 closely monitor BP and will administer BP lowering medications with caution Qualifiers: Hypotension type: unspecified hypotension type Qualified Code(s): I95.9 - Hypotension, unspecified (2) PNA (pneumonia) Current Visit: Yes Status: Acute Assessment and plan: New findings of pneumonia on CXR Clinically improving will continue IV abx f/u blood cultures PT Eval requested and initiated d/c planning Qualifiers: Pneumonia type: due to unspecified organism Laterality: unspecified laterality Lung location: unspecified part of lung Qualified Code(s): J18.9 - Pneumonia, unspecified organism (3) CAD (coronary artery disease) Current Visit: Yes Status: Chronic Assessment and plan: cardiology eval appreciated no acute intervention recommended continue asa, bb, statin,imdur noted history of CHF No changes in LVEF compared to prior Echo continue diuretic therapy O2 supplementation as needed monitor I/Os fluid restricted diet monitor daily weights will continue to closely monitor Elevated TNI likely demand ischemia given renal function and PNA, will continue medical management Qualifiers: Coronary Disease-Associated Artery/Lesion type: [place] artery [place] vs. transplanted heart: [place] heart Associated angina: with stable angina Qualified Code(s): I25.118 - Atherosclerotic heart disease of [place] coronary artery with other forms of angina pectoris (4) COPD (chronic obstructive pulmonary disease) Current Visit: No Status: Chronic Assessment and plan: not in acute exacerbation continue home medications bronchodilators as needed Qualifiers: COPD type: unspecified COPD Qualified Code(s): J44.9 - Chronic obstructive pulmonary disease, unspecified (5) Chronic kidney disease Current Visit: No Status: Chronic Assessment and plan: renal function worsened from previous day likely secondary to diuretic therapy switched to PO diuretic therapy with dose reduction will closely monitor renal function Qualifiers: Chronic kidney disease stage: stage 3 (moderate) Qualified Code(s): N18.3 - Chronic kidney disease, stage 3 (moderate) (6) Congestive heart failure Current Visit: No Status: Chronic Assessment and plan: as listed above Qualifiers: Congestive heart failure type: unspecified congestive heart failure type Congestive heart failure chronicity: acute Qualified Code(s): I50.9 - Heart failure, unspecified (7) DVT prophylaxis Current Visit: Yes Status: Acute Assessment and plan: Heparin SQ - Subjective Interval history: Patient seen and examined with family present at bedside. Resting comfortably in bed and reports of feeling significantly better compared to previous day. Noted to have worsening renal function likely secondary to PNA and diuretic therapy, however patient reports of doing well. No overnight issues reported. As per , patient ambulates with a walker however prior to hospitalization he has been having difficulty ambulating. Will obtain PT eval. - Constitutional Vitals: Temp Pulse Resp BP Pulse Ox 97.6 F 89 16 109/58 91 07/12/16 06:57 07/12/16 06:57 07/12/16 08:26 07/12/16 06:57 07/12/16 08:26 General appearance: Present: A&O X 3, pleasant, no acute distress, answers questions appropriately - Head Head exam: Present: atraumatic, normocephalic - Eye Eye exam: Present: normal appearance, conjuntiva pink, sclera anicteric - Respiratory Respiratory exam: Present: decreased breath sounds (on bilateral lower bases ). Absent: respiratory distress, wheezes - Cardiovascular Cardiovascular exam: Present: RRR, +S1, +S2 - GI/Abdominal GI/Abdominal exam: Present: normal bowel sounds, soft, no peritoneal signs. Absent: distended, tenderness - Extremities Exam Extremities exam: Present: warm, radial pulses palpable and symetrical. Absent : calf tenderness, cyanotic, pedal edema - Neurological Exam Neurological exam: Present: alert, oriented X3 - Psychiatric Psychiatric exam: Present: normal affect, normal mood Internal Medicine: Result - Labs CBC & Chem 7: 07/12/16 04:56 07/12/16 04:56 Labs: Short CBC 07/12/16 Range/Units 04:56 WBC 6.4 D (4.3-11.1) K/mcL Hgb 7.2 L (12.9-16.9) g/dL Hct 23.2 L (37.5-50.1) % Plt Count 189 (140-400) K/mcL Neutrophils # 4.8 (1.6-8.9) K/mcL BMP 07/12/16 04:56 Sodium 136 Potassium 4.1 Chloride 101 Carbon Dioxide 24 BUN 56 H D Creatinine 2.10 H Glucose 98 Calcium 8.6 Urine 07/11/16 Range/Units 16:19 Urine Color Yellow (Yellow) Urine Clarity Clear (Clear) Urine pH 6.0 (5.0-8.0) pH Units Ur Specific [place] 1.012 (1.010-1.025) Urine Protein Negative (Neg-Trace) mg/dL Urine Glucose (UA) Normal (Normal) mg/dL Consult Discharge Plan - Plan Referrals: Shalom Saab CNP [Primary Care Provider] - (Web requested 07/09/16)
[2016-07-12 12:15] LABS: Basophils % 0.5 %; Eosinophils # 0.1 K/mcL (0.0-0.6); Eosinophils % 2.3 %; Hemoglobin 8.2 g/dL (12.9-16.9); Immature Granulocytes % 0.7 % (0-4); Lymphocytes # 0.6 K/mcL (0.6-4.6); Lymphocytes % 9.9 %; Mean Corpuscular HGB Conc 30.4 g/dL (31.6-35.5); Mean Corpuscular Hemoglobin 27.8 pg (28.0-33.3); Mean Corpuscular Volume 91.5 fL (83.0-100.0); Mean Platelet Volume 10.3 fL (9.4-12.4); Monocytes # 0.7 K/mcL (0.0-1.3); Neutrophils # 4.3 K/mcL (1.6-8.9); Platelet Count 208 K/mcL (140-400); Red Blood Count 2.95 M/mcL (4.19-5.50); Segmented Neutrophils % 74.6 %
[2016-07-13] MEDS: Nitroglycerin 0.4 MG TAB.SUBL SL PRN ×2 (02:46→05:48)
[2016-07-13 05:40] LABS: Basophils % 0.6 %; Eosinophils # 0.1 K/mcL (0.0-0.6); Eosinophils % 2.3 %; Hematocrit 24.7 % (37.5-50.1); Hemoglobin 7.7 g/dL (12.9-16.9); Immature Granulocytes % 1.2 % (0-4); Lymphocytes # 0.7 K/mcL (0.6-4.6); Lymphocytes % 13.8 %; Mean Corpuscular HGB Conc 31.2 g/dL (31.6-35.5); Mean Corpuscular Hemoglobin 27.9 pg (28.0-33.3); Mean Corpuscular Volume 89.5 fL (83.0-100.0); Mean Platelet Volume 10.2 fL (9.4-12.4); Monocytes # 0.7 K/mcL (0.0-1.3); Neutrophils # 3.6 K/mcL (1.6-8.9); Platelet Count 220 K/mcL (140-400); Red Blood Count 2.76 M/mcL (4.19-5.50); Red Cell Distribution Width 14.1 % (11.5-14.5); Segmented Neutrophils % 69.1 %
[2016-07-13] MEDS: *HR* Heparin 5,000 UNIT/ML VIAL SQ SCH (05:48)
[2016-07-13 05:51] LABS: Calcium 9.1 mg/dL (8.6-10.8); Magnesium 2.6 mg/dL (1.6-2.6); Phosphorous 3.3 mg/dL (2.3-4.7)
[2016-07-13] MEDS: *HR* OxyCODONE Immed Rel 5 MG TABLET PO PRN ×2 (06:41→16:42)
[2016-07-13] MEDS: Cyanocobalamin (B-12) 1,000 MCG TABLET PO SCH (08:05)
[2016-07-13] MEDS: Aspirin 81 MG TAB.CHEW PO SCH (08:05)
[2016-07-13] MEDS: Thiamine (B-1) 100 MG TABLET PO SCH (08:05)
[2016-07-13] MEDS: Folic Acid 1 MG TABLET PO SCH (08:05)
[2016-07-13] MEDS: Vitamin B Complex/Vit C/Vit E 1 EACH TABLET PO SCH (08:05)
[2016-07-13] MEDS: Isosorbide MONOnitrate (24 HR) 60 MG TAB.ER.24H PO SCH (08:05)
[2016-07-13] MEDS: Furosemide 40 MG TABLET PO SCH (08:05)
[2016-07-13] MEDS: Levofloxacin 500 MG/100 ML 500 MG/100 ML BAG IVPB SCH (08:06)
[2016-07-13] MEDS: Metoprolol XL (24 HR) Succ 50 MG TAB.ER.24H PO SCH (08:07)
[2016-07-13] MEDS: Budesonide/Formoterol 160/4.5 MDI IH SCH ×2 (08:30→20:02)
[2016-07-13 11:09] LABS: Basophils % 0.6 %; Eosinophils # 0.2 K/mcL (0.0-0.6); Eosinophils % 3.1 %; Hematocrit 23.2 % (37.5-50.1); Hemoglobin 7.2 g/dL (12.9-16.9); Immature Granulocytes % 0.8 % (0-4); Lymphocytes # 0.5 K/mcL (0.6-4.6); Lymphocytes % 10.2 %; Mean Corpuscular Hemoglobin 27.7 pg (28.0-33.3); Mean Corpuscular Volume 89.2 fL (83.0-100.0); Mean Platelet Volume 9.6 fL (9.4-12.4); Monocytes # 0.7 K/mcL (0.0-1.3); Monocytes % 14.7 %; Neutrophils # 3.4 K/mcL (1.6-8.9); Platelet Count 201 K/mcL (140-400); Red Cell Distribution Width 14.1 % (11.5-14.5); Segmented Neutrophils % 70.6 %
--- NOTE | 2016-07-13 11:34 | Internal Med Progress Note ---
Date of Encounter: 07/13/16 Time of Encounter: 10:50 - Assessment and plan (1) Anemia Current Visit: No Status: Acute Assessment and plan: Noted to have drop in H&H Will transfuse 2units PRBC send occult stool closely monitor H&H Qualifiers: Anemia type: unspecified type Qualified Code(s): D64.9 - Anemia, unspecified (2) Hypotension Current Visit: Yes Status: Acute Assessment and plan: Likely drug induced-REsolved at this time BP within acceptable range Amlodipine has been discontinue, hold metoprolol if SBP<120 and hold Lasix if SBP<110 closely monitor BP and will administer BP lowering medications with caution Qualifiers: Hypotension type: unspecified hypotension type Qualified Code(s): I95.9 - Hypotension, unspecified (3) PNA (pneumonia) Current Visit: Yes Status: Acute Assessment and plan: New findings of pneumonia on CXR Clinically improving will continue IV abx f/u blood cultures PT Eval recommended home health social services specialist consultation requested Qualifiers: Pneumonia type: due to unspecified organism Laterality: unspecified laterality Lung location: unspecified part of lung Qualified Code(s): J18.9 - Pneumonia, unspecified organism (4) CAD (coronary artery disease) Current Visit: Yes Status: Chronic Assessment and plan: cardiology eval appreciated no acute intervention recommended continue asa, bb, statin,imdur noted history of CHF No changes in LVEF compared to prior Echo continue diuretic therapy O2 supplementation as needed monitor I/Os fluid restricted diet monitor daily weights will continue to closely monitor Elevated TNI likely demand ischemia given renal function and PNA, will continue medical management Qualifiers: Coronary Disease-Associated Artery/Lesion type: [place] artery [place] vs. transplanted heart: [place] heart Associated angina: with stable angina Qualified Code(s): I25.118 - Atherosclerotic heart disease of [place] coronary artery with other forms of angina pectoris (5) COPD (chronic obstructive pulmonary disease) Current Visit: No Status: Chronic Assessment and plan: not in acute exacerbation continue home medications bronchodilators as needed Qualifiers: COPD type: unspecified COPD Qualified Code(s): J44.9 - Chronic obstructive pulmonary disease, unspecified (6) Chronic kidney disease Current Visit: No Status: Chronic Assessment and plan: renal function improved from previous day continue to closely monitor Qualifiers: Chronic kidney disease stage: stage 3 (moderate) Qualified Code(s): N18.3 - Chronic kidney disease, stage 3 (moderate) (7) Congestive heart failure Current Visit: No Status: Chronic Assessment and plan: as listed above Qualifiers: Congestive heart failure type: unspecified congestive heart failure type Congestive heart failure chronicity: acute Qualified Code(s): I50.9 - Heart failure, unspecified (8) DVT prophylaxis Current Visit: Yes Status: Acute Assessment and plan: IPCD - Subjective Interval history: Patient seen and examined with family present at bedside. Patient appears more frail and weak today. Reported of having chest pain earlier this morning which was relieved with nitroglycerin. States this chest pain is chronic in nature it occurs on frequent basis when he is at home. NO EKG changes reported. Noted to have a drop in H&H, repeat H&H showed further drop. No acute bleeding reported.Will obtain stool occult to r/o GI bleed and transfuse 2units PRBC - Constitutional Vitals: Temp Pulse Resp BP Pulse Ox 97.6 F 92 16 101/42 96 07/13/16 11:08 07/13/16 11:08 07/13/16 11:08 07/13/16 11:08 07/13/16 11:08 General appearance: Present: A&O X 3, pleasant, no acute distress, answers questions appropriately - Head Head exam: Present: atraumatic, normocephalic - Eye Eye exam: Present: normal appearance, conjuntiva pink, sclera anicteric - Respiratory Respiratory exam: Present: decreased breath sounds. Absent: accessory muscle use, rales, rhonchi, wheezes - Cardiovascular Cardiovascular exam: Present: RRR, +S1, +S2. Absent: diastolic murmur, gallop, rubs, systolic murmur - GI/Abdominal GI/Abdominal exam: Present: normal bowel sounds, soft, no peritoneal signs. Absent: distended, tenderness - Extremities Exam Extremities exam: Present: warm, radial pulses palpable and symetrical. Absent : calf tenderness, cyanotic, pedal edema - Neurological Exam Neurological exam: Present: alert, oriented X3 - Psychiatric Psychiatric exam: Present: normal affect, normal mood Internal Medicine: Result - Labs CBC & Chem 7: 07/13/16 10:55 07/13/16 05:15 Labs: Short CBC 04/29/17 04/30/17 04/30/17 Range/Units 11:18 05:15 10:55 WBC 5.8 5.1 4.8 (4.3-11.1) K/mcL Hgb 8.2 L 7.7 L 7.2 L (12.9-16.9) g/dL Hct 27.0 L 24.7 L 23.2 L (37.5-50.1) % Plt Count 208 220 201 (140-400) K/mcL Neutrophils # 4.3 3.6 3.4 (1.6-8.9) K/mcL BMP 07/13/16 05:15 Sodium 137 Potassium 4.0 Chloride 103 Carbon Dioxide 22 BUN 54 H Creatinine 2.07 H Glucose 122 H Calcium 9.1 Consult Discharge Plan - Plan Referrals: Shalom Saab, AEROGRAPHER [Primary Care Provider] - (Web requested 07/09/16)
[2016-07-13] MEDS ORDERED: 0.9 % Sodium Chloride 500 ML ONE ×2 (14:42→18:03)
--- NOTE | 2016-07-13 17:29 | Electrocardiograph Report ---
[place] [id number] Test Date: 2016-07-10 Pat Name: Jose David Correa Department: 112 Room: 2A Gender: M Remote Coders: : 1925 Requested By: Brooke Nicole Order Number: [id number] Reading MD: Veronica Jefferson Measurements Intervals [place] Rate: 106 P: [place]: 0 QRS: 212 QRSD: 153 T: 29 QT: 370 QTc: 432 Interpretive Statements RIGHT AND LEFT ARM LEADS REVERSED PLEASE REPEAT ECG Electronically Signed On 07-13-2016 17:27:24 EDT by Veronica Jefferson
--- NOTE | 2016-07-13 17:35 | Electrocardiograph Report ---
[place] [id number] Test Date: 2016-07-11 Pat Name: Jose David Correa Department: 112 Room: 2A Gender: M Audio Visual Manager: ABDIAZIZ : 1925 Requested By: Brooke Nicole Order Number: [id number] Reading MD: Veronica Jefferson Measurements Intervals [place] Rate: 87 P: 52 SC: 163 QRS: -51 QRSD: 158 T: 105 QT: 408 QTc: 452 Interpretive Statements SINUS RHYTHM MARKED LEFT AXIS DEVIATION LEFT BUNDLE BRANCH BLOCK Electronically Signed On 07-13-2016 17:34:16 EDT by Veronica Jefferson
[2016-07-14] MEDS: Nitroglycerin 0.4 MG TAB.SUBL SL PRN (02:05)
[2016-07-14 03:42] LABS: Basophils % 0.6 %; Eosinophils # 0.2 K/mcL (0.0-0.6); Eosinophils % 4.1 %; Hematocrit 29.2 % (37.5-50.1); Immature Granulocytes % 1.7 % (0-4); Lymphocytes # 0.5 K/mcL (0.6-4.6); Lymphocytes % 9.9 %; Mean Corpuscular HGB Conc 31.8 g/dL (31.6-35.5); Mean Corpuscular Hemoglobin 28.3 pg (28.0-33.3); Mean Corpuscular Volume 88.8 fL (83.0-100.0); Mean Platelet Volume 10.2 fL (9.4-12.4); Monocytes % 18.8 %; Platelet Count 205 K/mcL (140-400); Red Blood Count 3.29 M/mcL (4.19-5.50); Red Cell Distribution Width 14.6 % (11.5-14.5); Segmented Neutrophils % 64.9 %
[2016-07-14 03:46] LABS: Hemoglobin 9.3 g/dL (12.9-16.9); Neutrophils # 3.4 K/mcL (1.6-8.9)
[2016-07-14 03:55] LABS: Calcium 8.9 mg/dL (8.6-10.8); Magnesium 2.4 mg/dL (1.6-2.6); Phosphorous 2.7 mg/dL (2.3-4.7)
[2016-07-14 04:25] LABS: Platelet Estimate Normal (Normal)
[2016-07-14 07:31] VITALS: BP 135/67
[2016-07-14] MEDS: Budesonide/Formoterol 160/4.5 MDI IH SCH (07:53)
[2016-07-14] MEDS: Metoprolol XL (24 HR) Succ 50 MG TAB.ER.24H PO SCH (09:04)
[2016-07-14] MEDS: Aspirin 81 MG TAB.CHEW PO SCH (09:04)
[2016-07-14] MEDS: Vitamin B Complex/Vit C/Vit E 1 EACH TABLET PO SCH (09:04)
[2016-07-14] MEDS: Folic Acid 1 MG TABLET PO SCH (09:05)
[2016-07-14] MEDS: Cyanocobalamin (B-12) 1,000 MCG TABLET PO SCH (09:05)
[2016-07-14] MEDS: Thiamine (B-1) 100 MG TABLET PO SCH (09:05)
[2016-07-14] MEDS: Isosorbide MONOnitrate (24 HR) 60 MG TAB.ER.24H PO SCH (09:05)
[2016-07-14] MEDS: Furosemide 40 MG TABLET PO SCH (09:05)
[2016-07-14] MEDS: Levofloxacin 500 MG/100 ML 500 MG/100 ML BAG IVPB SCH (09:07)
--- NOTE | 2016-07-14 10:11 | Discharge Summary ---
Date of Encounter: 07/14/16 Time of Encounter: 10:05 - Discharge Diagnosis (1) Anemia Priority: Secondary Status: Acute Qualifiers: Anemia type: unspecified type Qualified Code(s): D64.9 - Anemia, unspecified (2) Hypotension Priority: Secondary Status: Chronic Qualifiers: Hypotension type: unspecified hypotension type Qualified Code(s): I95.9 - Hypotension, unspecified (3) PNA (pneumonia) Priority: Primary Status: Acute Qualifiers: Pneumonia type: due to unspecified organism Laterality: unspecified laterality Lung location: unspecified part of lung Qualified Code(s): J18.9 - Pneumonia, unspecified organism (4) CAD (coronary artery disease) Priority: Primary Status: Chronic Qualifiers: Coronary Disease-Associated Artery/Lesion type: [place] artery [place] vs. transplanted heart: [place] heart Associated angina: with stable angina Qualified Code(s): I25.118 - Atherosclerotic heart disease of [place] coronary artery with other forms of angina pectoris (5) COPD (chronic obstructive pulmonary disease) Priority: Secondary Status: Chronic Qualifiers: COPD type: unspecified COPD Qualified Code(s): J44.9 - Chronic obstructive pulmonary disease, unspecified (6) Chronic kidney disease Priority: Secondary Status: Chronic Qualifiers: Chronic kidney disease stage: stage 3 (moderate) Qualified Code(s): N18.3 - Chronic kidney disease, stage 3 (moderate) (7) Congestive heart failure Priority: Primary Status: Chronic Qualifiers: Congestive heart failure type: unspecified congestive heart failure type Congestive heart failure chronicity: acute Qualified Code(s): I50.9 - Heart failure, unspecified (8) DVT prophylaxis Priority: Secondary Status: Acute - Discharge Medications Prescriptions: Levofloxacin [Levaquin] 500 mg PO DAILY #3 tablet Home Medications: Aspirin 81 mg PO DAILY 10/18/14 [History] Docusate [Colace] 200 mg PO DAILY 10/18/14 [History] Ipratropium/Albuterol Neb [Duoneb] 3 ml IH Q4H PRN 10/18/14 [History] Metoprolol XL (24 HR) Succ [Toprol XL] 50 mg PO DAILY 10/18/14 [History] Nitroglycerin [Nitrostat] 0.4 mg SL PRN PRN 10/18/14 [History] Cyanocobalamin (B-12) [Vitamin B12] 1,000 mcg PO DAILY #90 tablet 09/05/15 [Rx] Albuterol Sulfate [Proair Hfa] 1 puff IH Q4-6H PRN #1 inh 10/29/15 [Rx] Allopurinol [Zyloprim] 100 mg PO Q48H 12/24/15 [History] Aminocaproic Acid [Amicar] 500 mg PO BID 12/24/15 [History] Clopidogrel [Plavix] 75 mg PO DAILY 12/24/15 [History] Doxazosin [Cardura] 1 mg PO DAILY 12/24/15 [History] Furosemide [Lasix] 40 mg PO DAILY 12/24/15 [History] Oxycodone HCl [Oxaydo] 5 mg PO Q6H PRN 12/24/15 [History] Octreotide Acetate,Mi-Spheres [Sandostatin [place]] 10 mg IM QMONTH #1 vial [Rx] Folic Acid 1 mg PO DAILY #90 tablet 05/30/16 [Rx] Clotrimazole [Mycelex [place]] 10 mg MM QID 07/10/16 [History] Doxepin HCl [Silenor] 3 mg PO HS 07/10/16 [History] Gabapentin [Neurontin] 100 mg PO TID 07/10/16 [History] Isosorbide MONOnitrate (24 HR) [Imdur] 60 mg PO QAM 07/10/16 [History] Pantoprazole Sodium [Protonix] 40 mg PO DAILY 07/10/16 [History] Levofloxacin [Levaquin] 500 mg PO DAILY #3 tablet 07/14/16 [Rx] Allergies/Adverse Reactions: Allergies Penicillins Allergy (Verified 01/22/16 00:34) Rash morphine Adverse Reaction (Verified 01/22/16 00:34) Anxiety Procedures/tests Complete & Pending: Procedures Performed prior 72 hours Category Date Time Status ECG 12 lead ECG [ECG] Routine Y 07/11/16 10:43 Completed Date of admission: 07/12/16 16:12 Primary care physician: Shalom Saab CNP Consults: 07/09/16 20:57 Consult to Cardiology [CONS] Routine Comment: Consulting Provider: Cardiology Berenice Reason for Consult: CHF Call Completed: No 07/11/16 13:51 Consult to Cardiology [CONS] Routine Comment: Consulting Provider: Cardiology Berenice Reason for Consult: elevated troponin, Per RN. Call Completed: Yes 07/12/16 09:04 Consult to Physical Therapy [CONS] Routine Comment: Evaluate, develop and implement POC 07/13/16 08:49 Consult to Layup Worker [CONS] Routine Reason for SW Consult: PT recommended home health Discharging clinician: Brooke Nicole Anticipated date of discharge: 07/14/16 - Patient Status Disposition: Home Health Service Condition: Good Functional capacity at discharge: uses cane/walker Overall status at discharge: patient is back to baseline - Discharge Instructions Follow Up With: Shalom Saab CNP [Primary Care Provider] - (Web requested 07/09/16) Additional Instructions: Please follow up with your primary care physician within five days after your discharge from the hospital. Please follow up with cardiology within one week after your discharge from the hospital. Your home dose of Isosorbide nitrate's evening dose of 30mg at bedtime has been discontinued. Please continue oral antibiotics as prescribed. Please resume all your other home medications as prescribed by your primary care physician. Please closely monitor your blood pressure at home, if your SBP<120, hold your Metoprolol dose and consult your primary care physician. - Diet and Activity Activity: as per physical therapy, wear oxygen at all times Diet: low salt diet Hospital course: Mr. Correa is a 89 year old male with PMH of COPD on LTOT, CAD, CHF, PVD, HTN, AAA, cardiomyopathy, HLD, Afib, DVT who was admitted for management of chest pain and elevated troponins. He was followed by cardiology and medical management was recommended. His hospital course was complicated by Pneumonia and anemia. Patient was started on IV abx and received 2unit PRBC transfusion. No acute bleeding was reported and patient responded well to therapy. As per family, patient has a history of being confused overnight which was consistent with his overnight behavior during this hospitalization. His code status was also changed to DNR/DNI as per his wishes. At this time he is hemodynamically stable and will be discharged to home with home health. His mental status is at baseline and he is in no distress and denies any chest pain. Patient is to follow up with PCP and cardiology after discharge. Patient and family demonstrate understanding of his diagnosis and agree with the discharge care and plan. - Time Spent with Patient Total time spent providing and/or coordinating discharge services: Greater than 30 minutes - Constitutional Vitals: Temp Pulse Resp BP Pulse Ox 97.1 F L 109 18 135/67 95 07/14/16 07:23 07/14/16 07:23 07/14/16 07:59 07/14/16 07:23 07/14/16 09:58 General appearance: Present: A&O X 3, pleasant, no acute distress, answers questions appropriately - Head Head exam: Present: atraumatic, normocephalic - Eye Eye exam: Present: normal appearance, conjuntiva pink, sclera anicteric - Respiratory Respiratory exam: Present: CTAB. Absent: accessory muscle use, rales, rhonchi, wheezes - Cardiovascular Cardiovascular exam: Present: RRR, +S1, +S2. Absent: diastolic murmur, gallop, rubs, systolic murmur - GI/Abdominal GI/Abdominal exam: Present: normal bowel sounds, soft, no peritoneal signs. Absent: distended, tenderness - Extremities Exam Extremities exam: Present: warm, radial pulses palpable and symetrical. Absent : calf tenderness, pedal edema - Neurological Exam Neurological exam: Present: alert, oriented X3 - Psychiatric Psychiatric exam: Present: normal affect, normal mood
--- NOTE | 2016-07-14 10:21 | Physician Discharge Referral ---
Home Health/Hosp Referral Info Transfer to: Home Health Provider in Charge Post Discharge: PCP - Diagnosis (1) Anemia Priority: Secondary Status: Acute (2) Hypotension Priority: Secondary Status: Resolved (3) PNA (pneumonia) Priority: Primary Status: Acute (4) CAD (coronary artery disease) Priority: Primary Status: Chronic (5) COPD (chronic obstructive pulmonary disease) Priority: Secondary Status: Chronic (6) Chronic kidney disease Priority: Secondary Status: Chronic (7) Congestive heart failure Priority: Primary Status: Chronic (8) DVT prophylaxis Priority: Secondary Status: Acute - Respiratory Orders Smoking Cessation: Smoking cessation has been advised. For more information, call the [place] Tobacco Quit Line at 9-013-HXJL-NOW. - Services Needed Following services are medically necessary services: Nursing, Home Health Aide, Physical Therapy, Occupational Therapy - Transfer Medications Prescriptions: Levofloxacin [Levaquin] 500 mg PO DAILY #3 tablet Home Medications: Aspirin 81 mg PO DAILY 10/18/14 [History] Docusate [Colace] 200 mg PO DAILY 10/18/14 [History] Ipratropium/Albuterol Neb [Duoneb] 3 ml IH Q4H PRN 10/18/14 [History] Metoprolol XL (24 HR) Succ [Toprol XL] 50 mg PO DAILY 10/18/14 [History] Nitroglycerin [Nitrostat] 0.4 mg SL PRN PRN 10/18/14 [History] Cyanocobalamin (B-12) [Vitamin B12] 1,000 mcg PO DAILY #90 tablet 09/05/15 [Rx] Albuterol Sulfate [Proair Hfa] 1 puff IH Q4-6H PRN #1 inh 10/29/15 [Rx] Allopurinol [Zyloprim] 100 mg PO Q48H 12/24/15 [History] Aminocaproic Acid [Amicar] 500 mg PO BID 12/24/15 [History] Clopidogrel [Plavix] 75 mg PO DAILY 12/24/15 [History] Doxazosin [Cardura] 1 mg PO DAILY 12/24/15 [History] Furosemide [Lasix] 40 mg PO DAILY 12/24/15 [History] Oxycodone HCl [Oxaydo] 5 mg PO Q6H PRN 12/24/15 [History] Octreotide Acetate,Mi-Spheres [Sandostatin [place]] 10 mg IM QMONTH #1 vial [Rx] Folic Acid 1 mg PO DAILY #90 tablet 05/30/16 [Rx] Clotrimazole [Mycelex [place]] 10 mg MM QID 07/10/16 [History] Doxepin HCl [Silenor] 3 mg PO HS 07/10/16 [History] Gabapentin [Neurontin] 100 mg PO TID 07/10/16 [History] Isosorbide MONOnitrate (24 HR) [Imdur] 60 mg PO QAM 07/10/16 [History] Pantoprazole Sodium [Protonix] 40 mg PO DAILY 07/10/16 [History] Levofloxacin [Levaquin] 500 mg PO DAILY #3 tablet 07/14/16 [Rx] Allergies/Adverse Reactions: Allergies Penicillins Allergy (Verified 01/22/16 00:34) Rash morphine Adverse Reaction (Verified 01/22/16 00:34) Anxiety Certification: Further, I certify that my clinical findings support that this patient is homebound (i.e. absences from home require considerable and taxing effort and are for medical reasons or confucianist services or infrequently or short duration when for other reasons) because: Homebound Reason: Patient requires assistance of a person or device to safely leave home Attestation: My signature below is to certify that this patient is under my care and that I, or nurse practitioner, or a physician's therapy assistant working with me, has a face-to -face encounter with this patient.
--- NOTE | 2016-07-14 14:58 | Electrocardiograph Report ---
[place] [id number] Test Date: 2016-07-14 Pat Name: Jose David Correa Department: 112 Room: 2A26 Gender: M Transformation Lead: NICKY : 1925 Requested By: Brooke Nicole Order Number: [id number] Reading MD: Teo Diggs DO Measurements Intervals [place] Rate: 93 P: 45 SC: 168 QRS: -63 QRSD: 157 T: 99 QT: 399 QTc: 450 Interpretive Statements SINUS RHYTHM MARKED LEFT AXIS DEVIATION LEFT BUNDLE BRANCH BLOCK Electronically Signed On 07-14-2016 14:56:22 EDT by Teo Diggs DO
== END 2016-07-14 11:35 | disposition home health service (06) | DRG 190 ==
LOC: 2ANU
PROVIDERS: ADMIT Nurse Practitioner Family; ATTEND Internal Medicine

== ENCOUNTER 2016-10-05 15:16 | Inpatient (IN) ==
[2016-10-05] MEDS ORDERED: Acetaminophen 325 MG TABLET PO PRN (18:53)
[2016-10-05] MEDS ORDERED: Naloxone 0.4 MG/ML INJ IVP PRN (18:53)
[2016-10-05] MEDS ORDERED: Ondansetron ODT 4 MG TAB.RAPDIS SL PRN (18:53)
[2016-10-05] MEDS ORDERED: Albuterol 2.5 MG/3 ML NEBULIZER IH PRN (19:37)
--- NOTE | 2016-10-05 20:06 | Internal Med History&Physical ---
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 BNP elevated to 1358, CXR shows interval development of pulmonary edema. Last echo 07/10/16 showed LVEF of 20-25 %. Severe global LV systolic dysfunction, and indeterminate diastolic function. Lasix 40mg IVP BID daily weights cardiac diet with 1.5L fluid restriction strict I/Os titrate O2 to maintain oxygen > 90%. (2) Iron deficiency anemia Current visit: Yes Status: Acute Hgb of 7.4 today, down from previous of 7.7. Patient with chronic anemia and previous transfusions. Patient denies black or bloody stools, denies any source of bleeding. FOB ordered Type and screen check H/H q6 hrs Qualifiers: Iron deficiency anemia type: unspecified iron deficiency Qualified Code(s) : D50.9 - Iron deficiency anemia, unspecified (3) COPD (chronic obstructive pulmonary disease) Current visit: Yes Status: Chronic Patient reports dry cough, not any worse than his baseline. Increased shortness of breath likely due to CHF exacerbation. albuterol nebulizer Q2hr PRN duoneb treatments QID titrate O2 to maintain saturation > 90%. Qualifiers: COPD type: unspecified COPD Qualified Code(s): J44.9 - Chronic obstructive pulmonary disease, unspecified (4) Chronic kidney disease Current visit: Yes Status: Chronic Patient's creatinine of 1.93 appears consistent with baseline. Monitor chemistry daily. Qualifiers: Chronic kidney disease stage: stage 3 (moderate) Qualified Code(s): N18.3 - Chronic kidney disease, stage 3 (moderate) (5) Elevated troponin Current visit: Yes Status: Acute Troponin of 0.08 in the setting of CHF exacerbation and CKD. Patient denies any chest pain. Continuous rig hand serial troponins for trend. (6) Smoker Current visit: Yes Status: Acute Patient continues to smoke 1PPD. Encouraged smoking cessation. Smoking cessation education and nicotine patch ordered. (7) DVT prophylaxis Current visit: Yes Status: Acute sequential compression devices. Given patient's significant anemia and concern for possible bleeding, will not give pharmacologic prophylaxis. Internal Medicine - H&P: HPI Chief complaint: shortness of breath Admitted From: Emergency Dept Plans for Post Hospital Care: Home History of present illness: Mr. Correa is a 89 year old male with COPD, hypertension, hyperlipidemia, chronic kidney disease, systolic congestive heart failure, chronic anemia, coronary artery disease, history of GI bleed, presents to [facility] today with complaints of shortness of breath. Patient reports that his shortness of breath has been worsening over the last 6 weeks, even more so over the last several days. He is unable to walk short distances without getting winded. He denies any chest pain, palpitations, lightheadedness. He reports a chronic dry cough which has not worsened. He also reports night sweats and chills. He denies any increased edema. Evaluation in Telephone revealed anemia with hemoglobin of 7.4 down from previous of 7.7. Creatinine was elevated to 1.93, however this is consistent with his baseline chronic kidney disease. Troponin was mildly elevated at 0.08. BNP was elevated to 1358, down from previous of 1789 in August. His chest x-ray showed interval development of pulmonary edema. On exam, patient alert and oriented, in no acute distress. Heart had regular rate and rhythm, systolic murmur. Lungs were coarse on exam. Abdomen is soft nontender with positive bowel sounds. No peripheral edema. Past Med Surg Social Fam HX - Past Medical History Medical history: aortic aneurysm, arthritis, COPD, coronary artery disease, DVT , GI bleed, hyperlipidemia, hypertension, renal disease, other Psychiatric history: anxiety - Past Surgical History Surgical History: appendectomy, carotid endarterectomy, cholecystectomy, hip replacement, knee replacement, other - Social History Smoking Status: Current every day smoker Smokeless Tobacco Status: No Alcohol use: none Drug use: none - Family History Father Twin of Family Member: Yes, Fraternal Living Status: Hx Family Cardiac Disorders: Yes Hx Family Respiratory Disorders: Yes Hx Family Cancer: Yes Hx Family GI Disorders: No Hx Family Endocrine Disorder: No Hx Family Neuromuscular Disorders: No Hx Family Neurologic Disorders: No Hx Family HEENT Disorders: No Hx Family Autoimmune Disorders: No Internal Medicine - H&P: Meds Aspirin 81 mg PO DAILY 10/18/14 [History] Docusate [Colace] 200 mg PO DAILY 10/18/14 [History] Ipratropium/Albuterol Neb [Duoneb] 3 ml IH Q4H PRN 10/18/14 [History] Metoprolol XL (24 HR) Succ [Toprol XL] 50 mg PO DAILY 10/18/14 [History] Nitroglycerin [Nitrostat] 0.4 mg SL PRN PRN 10/18/14 [History] Cyanocobalamin (B-12) [Vitamin B12] 1,000 mcg PO DAILY #90 tablet 09/05/15 [Rx] Albuterol Sulfate [Proair Hfa] 1 puff IH Q4-6H PRN #1 inh 10/29/15 [Rx] Allopurinol [Zyloprim] 100 mg PO Q48H 12/24/15 [History] Aminocaproic Acid [Amicar] 500 mg PO BID 12/24/15 [History] Clopidogrel [Plavix] 75 mg PO DAILY 12/24/15 [History] Doxazosin [Cardura] 1 mg PO DAILY 12/24/15 [History] Furosemide [Lasix] 40 mg PO DAILY 12/24/15 [History] Oxycodone HCl [Oxaydo] 5 mg PO Q6H PRN 12/24/15 [History] Octreotide Acetate,Mi-Spheres [Sandostatin [place]] 10 mg IM QMONTH #1 vial [Rx] Folic Acid 1 mg PO DAILY #90 tablet 05/30/16 [Rx] Clotrimazole [Mycelex Kentrell] 10 mg MM QID 07/10/16 [History] Doxepin HCl [Silenor] 3 mg PO HS 07/10/16 [History] Gabapentin [Neurontin] 100 mg PO TID 07/10/16 [History] Isosorbide MONOnitrate (24 HR) [Imdur] 60 mg PO QAM 07/10/16 [History] Pantoprazole Sodium [Protonix] 40 mg PO DAILY 07/10/16 [History] levoFLOXacin [Levaquin] 500 mg PO DAILY #3 tablet 07/14/16 [Rx] Allergies Penicillins Allergy (Verified 01/22/16 00:34) Rash morphine Adverse Reaction (Verified 01/22/16 00:34) Anxiety All Systems PM: A 10-system review of systems was performed and is negative for pertinent findings except as documented above in the HPI. - Constitutional Constitutional: chills, night sweats, no fever(s) - EENT Eyes: no change in vision, no discharge, no pain, no photophobia Ears: no ear discharge, no ear pain, no tinnitus Nose, mouth and throat: no dysphagia, no nasal discharge, no neck pain, no sore throat - Cardiovascular Cardiovascular ROS IM: dyspnea, dyspnea on exertion, paroxysmal nocturnal dyspnea, no chest pain, no diaphoresis, no lightheadedness, no palpitations, no syncope - Respiratory Respiratory: cough, no dyspnea, no wheezing, no excessive phlegm production - Gastrointestinal Gastrointestinal: no abdominal pain, no diarrhea, no hematemesis, no hematochezia, no melena, no nausea, no vomiting - Musculoskeletal Musculoskeletal ROS IM: no numbness, no tingling - Integumentary Integumentary IM: no rash, no unusual bruising - Neurological Neurological ROS: no confusion, no convulsions, no focal weakness, no numbness, no tingling, no tremor(s) - Hematologic/Lymphatic Hematologic/Lymphatic: no easy bruising - Constitutional Vitals: Temp Pulse Resp BP Pulse Ox 97.6 F 106 22 110/57 99 10/05/16 17:51 10/05/16 17:51 10/05/16 17:51 10/05/16 17:51 10/05/16 17:52 General appearance: Present: A&O X 3, pleasant, no acute distress - Head Head exam: Present: atraumatic, normocephalic - Eye Eye exam: Present: PERRL, conjuntiva pink, sclera anicteric Pupils: Present: PERRL - Neck Neck exam general surgery: Present: supple, trachea midline. Absent: lymphadenopathy - Respiratory Respiratory exam: Present: rales (bilateral). Absent: accessory muscle use, rhonchi, wheezes - Cardiovascular Cardiovascular exam: Present: RRR, +S1, +S2, systolic murmur. Absent: diastolic murmur, gallop, rubs - GI/Abdominal GI/Abdominal exam: Present: normal bowel sounds, soft, no peritoneal signs. Absent: distended, tenderness - Extremities Exam Extremities exam: Present: warm, radial pulses palpable and symetrical. Absent : calf tenderness, cyanotic, pedal edema - Neurological Exam Neurological exam: Present: CN II-XII intact, oriented X3, no focal deficits. Absent: facial droop, speech deficit - Skin Skin exam: Present: dry, intact Internal Med - H&P Results - Labs CBC & Chem 7: 10/05/16 20:01 Labs: Labs from Telephone: WBC 6.0 Hgb 7.4 Hct 24.5 Plt 228 Na 137 K 4.1 Cl 100 CO2 23 BUN 29 Cr 1.93 GLU 100 Trop 0.08 BNP 1358 <Seth-Amandeep Johnson - Last Filed: 10/06/16 00:50> Date of Encounter: 10/06/16 Internal Medicine - H&P: HPI History of present illness: Mr. Correa is a 89 year old male All Systems PM: A 10-system review of systems was performed and is negative for pertinent findings except as documented above in the HPI. - Constitutional Vitals: Temp Pulse Resp BP Pulse Ox 97.5 F L 106 16 122/74 95 10/05/16 23:58 10/05/16 23:58 10/05/16 23:58 10/05/16 23:58 10/05/16 23:58 Internal Med - H&P Results - Labs CBC & Chem 7: 10/05/16 20:01 Labs: Short CBC 10/05/16 Range/Units 20:01 Hgb 8.2 L (12.9-16.9) g/dL Hct 28.3 L (37.5-50.1) % Cardiac Enzymes 10/05/16 Range/Units 20:01 Troponin I 0.06 H* (0-0.03) ng/mL - Attending Attestation I have seen and examined the patient. I have reviewed the orders and the note. Patient is a 89-year-old male with past medical history of COPD, hypertension, hyperlipidemia, systolic CHF, chronic kidney disease, chronic anemia, coronary artery disease, history of GI bleed. He presents to ED with complaints of shortness of breath. He states symptoms have been worsening over the past 6 weeks. Symptoms are worse with exertion and while laying flat. He was transferred from Telephone ED today for CHF. Initial evaluation revealed low H &H. Creatinine is elevated compared to baseline. Upon is 0.08 and BNP peptide is 1358. Chest x-ray revealed pulmonary edema. EKG revealed sinus rhythm with no acute ST changes. On examination patient is awake and alert. Not in any distress. Says his symptoms have improved now. He is being admitted for CHF exacerbation and acute on chronic anemia. Patient will be on IV Lasix, fluid restriction and strict I's and O's will be maintained. Continue O2 via nasal cannula. Type and screen and monitor H&H closely. Transfuse PRBC if needed. Patient has been explained about his condition and plan of care. Understood and agreed. No unanswered questions. No family members at bedside. CODE STATUS full code. Heart rate 106, blood pressure 122/74, O2 sat 95% on 2 L nasal cannula. Heart S1-S2 positive without systolic murmur. Lungs bilateral air entry mild crackles bilaterally. Extremities all pulses are no edema. Abdomen soft nontender no masses or guarding.
[2016-10-05 20:12] LABS: Hematocrit 28.3 % (37.5-50.1); Hemoglobin 8.2 g/dL (12.9-16.9)
[2016-10-05] MEDS: *HR* OxyCODONE Immed Rel 5 MG TABLET PO PRN (20:31)
[2016-10-05] MEDS: Nicotine 21 MG PATCH.TD24 TD SCH (20:31)
[2016-10-05] MEDS: Furosemide 40 MG/4 ML VIAL IVP SCH (20:31)
[2016-10-05] MEDS: Ipratropium/Albuterol Neb 3 ML IH SCH ×2 (21:11→22:13)
[2016-10-06] MEDS ORDERED: Nitroglycerin 0.4 MG TAB.SUBL SL PRN (00:50)
[2016-10-06 01:32] LABS: Hematocrit 24.9 % (37.5-50.1); Hematocrit 25.1 % (37.5-50.1); Hemoglobin 7.3 g/dL (12.9-16.9); Hemoglobin 7.4 g/dL (12.9-16.9); Immature Granulocytes % 0.6 % (0-4); Lymphocytes # 0.1 K/mcL (0.6-4.6); Lymphocytes % 3.9 %; Mean Corpuscular HGB Conc 29.7 g/dL (31.6-35.5); Mean Corpuscular Hemoglobin 25.3 pg (28.0-33.3); Monocytes # 0.1 K/mcL (0.0-1.3); Monocytes % 2.8 %; Neutrophils # 3.3 K/mcL (1.6-8.9); Platelet Count 220 K/mcL (140-400); Red Blood Count 2.93 M/mcL (4.19-5.50); Red Cell Distribution Width 16.1 % (11.5-14.5); Segmented Neutrophils % 92.7 %
[2016-10-06 01:46] LABS: Calcium 9.2 mg/dL (8.6-10.8); Potassium 4.2 mEq/L (3.5-4.5)
[2016-10-06 02:07] LABS: Platelet Estimate Normal (Normal)
[2016-10-06] MEDS: *HR* OxyCODONE Immed Rel 5 MG TABLET PO PRN (02:46)
[2016-10-06] MEDS: Ipratropium/Albuterol Neb 3 ML IH SCH ×7 (03:31→23:00)
[2016-10-06] MEDS ORDERED: *HR* Heparin 5,000 UNIT/ML VIAL SQ SCH (06:00)
[2016-10-06] MEDS: Pantoprazole 40 MG VIAL IVP SCH ×2 (06:52→17:11)
[2016-10-06 07:55] LABS: Hematocrit 25.1 % (37.5-50.1); Hemoglobin 7.4 g/dL (12.9-16.9)
[2016-10-06] MEDS: Furosemide 40 MG/4 ML VIAL IVP SCH ×2 (09:14→17:11)
[2016-10-06] MEDS: Metoprolol XL (24 HR) Succ 50 MG TAB.ER.24H PO SCH (09:14)
[2016-10-06] MEDS: Isosorbide MONOnitrate (24 HR) 60 MG TAB.ER.24H PO SCH (09:14)
[2016-10-06] MEDS: Aspirin 81 MG TAB.CHEW PO SCH (09:14)
[2016-10-06] MEDS: Folic Acid 1 MG TABLET PO SCH (09:14)
[2016-10-06] MEDS: Nicotine 21 MG PATCH.TD24 TD SCH (09:15)
--- NOTE | 2016-10-06 10:53 | Internal Med Progress Note ---
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 -BNP elevated to 1358, CXR shows interval development of pulmonary edema. -Last echo 07/10/16 showed LVEF of 20-25%. -Severe global LV systolic dysfunction, and indeterminate diastolic function. -Lasix 40mg IVP BID -daily weights -cardiac diet with 1.5L fluid restriction -strict I/Os -titrate O2 to maintain oxygen > 90% (2) Iron deficiency anemia Current Visit: Yes Status: Acute Assessment and plan: Hgb of 7.4 today, down from previous of 7.7. -Patient with chronic anemia and previous transfusions. -Patient denies black or bloody stools, denies any source of bleeding. -FOB ordered -Type and screen -check H/H q6 hrs Qualifiers: Qualified Code(s): D50.9 - Iron deficiency anemia, unspecified (3) COPD (chronic obstructive pulmonary disease) Current Visit: Yes Status: Chronic Assessment and plan: Patient reports dry cough, not any worse than his baseline. -Increased shortness of breath likely due to CHF exacerbation. -albuterol nebulizer Q2hr PRN -duoneb treatments QID -titrate O2 to maintain saturation > 90%. -Denies SOB this morning. Qualifiers: COPD type: unspecified COPD Qualified Code(s): J44.9 - Chronic obstructive pulmonary disease, unspecified (4) Chronic kidney disease Current Visit: Yes Status: Chronic Assessment and plan: Creatinine of 2.0 this morning. -Consistent with baseline. -Monitor chemistry daily. Qualifiers: Chronic kidney disease stage: stage 3 (moderate) Qualified Code(s): N18.3 - Chronic kidney disease, stage 3 (moderate) (5) DVT prophylaxis Current Visit: Yes Status: Acute Assessment and plan: Sequential compression devices. Given patient's significant anemia and concern for possible bleeding, will not give pharmacologic prophylaxis. - Subjective Interval history: Patient was seen and examined this morning. Patient states that his shortness of breath has improved since his admission to the hospital. Patient denied having any night sweats last night. States that since his stay in the hospital , he has not had a cough or any severe episodes of respiratory distress. There is no swelling in his lower legs appreciated. He currently denies nausea, vomiting, fever, chills, chest pain, or shortness of breath. The patient has no complaints at this time. - Constitutional Vitals: Temp Pulse Resp BP Pulse Ox 97.9 F 102 22 115/66 99 10/06/16 07:20 10/06/16 07:20 10/06/16 08:24 10/06/16 07:20 10/06/16 09:25 General appearance: Present: A&O X 3, pleasant, no acute distress - Head Head exam: Present: atraumatic, normocephalic - Neck Neck exam general surgery: Present: supple, trachea midline. Absent: lymphadenopathy - Respiratory Respiratory exam: Present: rhonchi, wheezes. Absent: accessory muscle use, CTAB , rales Additional comments: Mild expiratory wheezing appreciated bilaterally. Mild crackles heard bilaterally in the lower lung garcia. - Cardiovascular Cardiovascular exam: Present: RRR, +S1, +S2. Absent: diastolic murmur, gallop, rubs, systolic murmur - Extremities Exam Extremities exam: Present: warm, radial pulses palpable and symetrical. Absent : calf tenderness, cyanotic, pedal edema - Skin Skin exam: Present: dry, intact Internal Medicine: Result - Labs CBC & Chem 7: 10/06/16 06:47 10/06/16 01:15 Labs: Short CBC 10/05/16 10/06/16 10/06/16 Range/Units 20:01 01:15 01:15 WBC 3.6 L (4.3-11.1) K/mcL Hgb 8.2 L 7.4 L 7.3 L (12.9-16.9) g/dL Hct 28.3 L 24.9 L 25.1 L (37.5-50.1) % Plt Count 220 (140-400) K/mcL Neutrophils # 3.3 (1.6-8.9) K/mcL 10/06/16 Range/Units 06:47 WBC (4.3-11.1) K/mcL Hgb 7.4 L (12.9-16.9) g/dL Hct 25.1 L (37.5-50.1) % Plt Count (140-400) K/mcL Neutrophils # (1.6-8.9) K/mcL BMP 10/06/16 01:15 Sodium 137 Potassium 4.2 Chloride 99 Carbon Dioxide 26 BUN 33 H Creatinine 2.00 H Glucose 131 H Calcium 9.2 Cardiac Enzymes 10/05/16 10/06/16 10/06/16 Range/Units 20:01 01:15 06:47 Troponin I 0.06 H* 0.06 H* 0.07 H* (0-0.03) ng/mL Consult Discharge Plan - Plan Referrals: Shalom Saab [employer] ENVIRONMENTAL OPERATOR [Primary Care Provider] - 10/13/16 11:00 am (Please follow up as schedule...) <Ender Rosa H - Last Filed: 10/06/16 15:12> Date of Encounter: 10/06/16 - Constitutional Vitals: Temp Pulse Resp BP Pulse Ox 97.6 F 112 16 91/52 100 10/06/16 11:06 10/06/16 11:06 10/06/16 11:06 10/06/16 11:06 10/06/16 11:06 Internal Medicine: Result - Labs CBC & Chem 7: 10/06/16 14:14 10/06/16 01:15 Labs: Short CBC 10/05/16 10/06/16 10/06/16 Range/Units 20:01 01:15 01:15 WBC 3.6 L (4.3-11.1) K/mcL Hgb 8.2 L 7.4 L 7.3 L (12.9-16.9) g/dL Hct 28.3 L 24.9 L 25.1 L (37.5-50.1) % Plt Count 220 (140-400) K/mcL Neutrophils # 3.3 (1.6-8.9) K/mcL 10/06/16 10/06/16 Range/Units 06:47 14:14 WBC (4.3-11.1) K/mcL Hgb 7.4 L 7.2 L (12.9-16.9) g/dL Hct 25.1 L 25.4 L (37.5-50.1) % Plt Count (140-400) K/mcL Neutrophils # (1.6-8.9) K/mcL BMP 10/06/16 01:15 Sodium 137 Potassium 4.2 Chloride 99 Carbon Dioxide 26 BUN 33 H Creatinine 2.00 H Glucose 131 H Calcium 9.2 Cardiac Enzymes 10/05/16 10/06/16 10/06/16 Range/Units 20:01 01:15 06:47 Troponin I 0.06 H* 0.06 H* 0.07 H* (0-0.03) ng/mL Urine 10/06/16 Range/Units 14:20 Urine Color Yellow (Yellow) Urine Clarity Clear (Clear) Urine pH 6.5 (5.0-8.0) pH Units Ur Specific Butler 1.013 (1.010-1.025) Urine Protein Negative (Neg-Trace) mg/dL Urine Glucose (UA) Normal (Normal) mg/dL - Attending Attestation Acute systolic CHF exacerbation Continue Lasix I examined this patient and my medical decision-making was reviewed with the Resident Physician. I agree with the documented findings, disposition and treatment plan as described except to the extent set forth below.
[2016-10-06 14:38] LABS: Hematocrit 25.4 % (37.5-50.1); Hemoglobin 7.2 g/dL (12.9-16.9)
[2016-10-06 14:47] LABS: Bilirubin,Urine Negative (Negative); Blood,Urine Negative (Negative); Clarity,Urine Clear (Clear); Color,Urine Yellow (Yellow); Glucose,Urine (UA) Normal (Normal); Ketones,Urine Negative (Negative); Leukocyte Esterase,Urine Negative (Negative); Nitrite,Urine Negative (Negative); PH,Urine 6.5 pH Units (5.0-8.0); Protein,Urine Negative (Neg-Trace); Specific Gravity,Urine 1.013 (1.010-1.025); Urobilinogen,Urine Normal (Normal)
[2016-10-06] MEDS ORDERED: DOXEPIN HCL 3 MG PO SCH (21:00)
[2016-10-07] MEDS: Ipratropium/Albuterol Neb 3 ML IH SCH ×6 (04:20→23:24)
[2016-10-07] MEDS: Pantoprazole 40 MG VIAL IVP SCH (06:23)
[2016-10-07 07:02] LABS: INR 1.3; Prothrombin Time 14.3 Seconds (9.4-12.1)
[2016-10-07 07:07] LABS: Potassium 3.8 mEq/L (3.5-4.5)
[2016-10-07 08:49] LABS: Basophils % 0.4 %; Eosinophils % 0.1 %; Hematocrit 24.5 % (37.5-50.1); Hemoglobin 7.2 g/dL (12.9-16.9); Immature Granulocytes % 0.5 % (0-4); Immature Platelets 7.8 % (1.1-6.1); Lymphocytes # 0.6 K/mcL (0.6-4.6); Lymphocytes % 5.5 %; Mean Corpuscular HGB Conc 29.4 g/dL (31.6-35.5); Mean Corpuscular Hemoglobin 25.1 pg (28.0-33.3); Mean Corpuscular Volume 85.4 fL (83.0-100.0); Mean Platelet Volume 11.2 fL (9.4-12.4); Monocytes # 0.9 K/mcL (0.0-1.3); Monocytes % 8.4 %; Neutrophils # 9.1 K/mcL (1.6-8.9); Platelet Count 247 K/mcL (140-400); Red Blood Count 2.87 M/mcL (4.19-5.50); Red Cell Distribution Width 16.3 % (11.5-14.5); Segmented Neutrophils % 85.1 %
[2016-10-07] MEDS: Metoprolol XL (24 HR) Succ 50 MG TAB.ER.24H PO SCH (09:28)
[2016-10-07] MEDS: Nicotine 21 MG PATCH.TD24 TD SCH (09:28)
[2016-10-07] MEDS: Isosorbide MONOnitrate (24 HR) 60 MG TAB.ER.24H PO SCH (09:28)
[2016-10-07] MEDS: Aspirin 81 MG TAB.CHEW PO SCH (09:28)
[2016-10-07] MEDS: Folic Acid 1 MG TABLET PO SCH (09:28)
[2016-10-07] MEDS: Furosemide 40 MG/4 ML VIAL IVP SCH ×2 (09:28→17:48)
[2016-10-07] MEDS ORDERED: Haloperidol Lactate 5 MG/ML VIAL IVP ONE ×2 (09:48→14:43)
--- NOTE | 2016-10-07 10:37 | Internal Med Progress Note ---
<Evangelista Tomlin - Last Filed: 10/07/16 10:34> Date of Encounter: 10/07/16 Time of Encounter: 09:00 - Assessment and plan (1) Confusion Current Visit: Yes Status: Acute Assessment and plan: Patient was very confused and agitated this morning. -Patient seemed to confuse whether he was at home or in the hospital. -He complained of the nursing staff "moving furniture out of his house." -He was also confused as to why his was not present. -He was ripping off his nasal cannula and was ripping at his lines. -Patient was given 1 mg of haloperidol. 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 -BNP elevated to 1358, CXR shows interval development of pulmonary edema. -Last echo 07/10/16 showed LVEF of 20-25%. -Severe global LV systolic dysfunction, and indeterminate diastolic function. -Lasix 40mg IVP BID -daily weights -cardiac diet with 1.5L fluid restriction -strict I/Os -titrate O2 to maintain oxygen > 90% (3) Iron deficiency anemia Current Visit: Yes Status: Acute Assessment and plan: Patient with chronic anemia and previous transfusions. -Patient denies black or bloody stools, denies any source of bleeding. -FOB ordered -Type and screen -check H/H q6 hrs Qualifiers: Qualified Code(s): D50.9 - Iron deficiency anemia, unspecified (4) COPD (chronic obstructive pulmonary disease) Current Visit: Yes Status: Chronic Assessment and plan: Patient reports dry cough, not any worse than his baseline. -Increased shortness of breath likely due to CHF exacerbation. -albuterol nebulizer Q2hr PRN -duoneb treatments QID -titrate O2 to maintain saturation > 90%. -Denies SOB this morning. Qualifiers: COPD type: unspecified COPD Qualified Code(s): J44.9 - Chronic obstructive pulmonary disease, unspecified (5) Chronic kidney disease Current Visit: Yes Status: Chronic Assessment and plan: Creatinine of 2.0 this morning. -Consistent with baseline. -Monitor chemistry daily. Qualifiers: Chronic kidney disease stage: stage 3 (moderate) Qualified Code(s): N18.3 - Chronic kidney disease, stage 3 (moderate) (6) DVT prophylaxis Current Visit: Yes Status: Acute Assessment and plan: Sequential compression devices. Given patient's significant anemia and concern for possible bleeding, will not give pharmacologic prophylaxis. - Subjective Interval history: Patient was seen and examined this morning. This morning, patient appeared to be very confused and somewhat angry. He seemed to confuse the hospital for his home, and was complaining that the nurses were moving his furniture. It seemed to be very frustrated that he was unable to contact his in the morning. He was ripping his cannula off and looking at his lines. Patient seemed very irritable, but did not seem to have an improvement in his initial shortness of breath. Patient was given Haldol 1 mg. Patient's is now here, but patient is still confused. - Constitutional Vitals: Temp Pulse Resp BP Pulse Ox 97.9 F 105 16 105/63 96 10/07/16 06:41 10/07/16 06:41 10/07/16 06:41 10/07/16 06:41 10/07/16 06:41 General appearance: Present: A&O X 1, mild distress - Head Head exam: Present: atraumatic, normocephalic - Neck Neck exam general surgery: Present: supple, trachea midline. Absent: lymphadenopathy - Respiratory Respiratory exam: Present: CTAB. Absent: accessory muscle use, rales, rhonchi, wheezes - Cardiovascular Cardiovascular exam: Present: RRR, +S1, +S2. Absent: diastolic murmur, gallop, rubs, systolic murmur - GI/Abdominal GI/Abdominal exam: Absent: distended - Extremities Exam Extremities exam: Absent: pedal edema - Psychiatric Psychiatric exam: Present: agitated - Skin Skin exam: Present: dry, intact Internal Medicine: Result - Labs CBC & Chem 7: 10/07/16 07:56 10/07/16 06:15 Labs: Short CBC 10/06/16 10/07/16 Range/Units 14:14 07:56 WBC 10.7 D (4.3-11.1) K/mcL Hgb 7.2 L 7.2 L (12.9-16.9) g/dL Hct 25.4 L 24.5 L (37.5-50.1) % Plt Count 247 (140-400) K/mcL Neutrophils # 9.1 H (1.6-8.9) K/mcL BMP 10/07/16 06:15 Sodium 137 Potassium 3.8 Chloride 99 Carbon Dioxide 28 BUN 48 H D Creatinine 2.25 H Glucose 93 Calcium 9.0 Urine 10/06/16 Range/Units 14:20 Urine Color Yellow (Yellow) Urine Clarity Clear (Clear) Urine pH 6.5 (5.0-8.0) pH Units Ur Specific Hana 1.013 (1.010-1.025) Urine Protein Negative (Neg-Trace) mg/dL Urine Glucose (UA) Normal (Normal) mg/dL - ABG Interpretation ABG results: PT/INR, D-dimer PT 14.3 Seconds (9.4-12.1) H 10/07/16 06:15 - VTE Documentation of Mechanical Device: Intermittent pneumatic compression device Consult Discharge Plan - Plan Referrals: Shalom Saab CNP [Primary Care Provider] - 10/13/16 11:00 am (Please follow up as schedule...) <Benito Aguilar - Last Filed: 10/07/16 18:24> Date of Encounter: 10/07/16 - Assessment and plan (1) Acute metabolic encephalopathy Current Visit: Yes Status: Acute Assessment and plan: Monitor. PRN Haldol. Suspect there is component of dementia. Neuro to eval. 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), NYHA class 3 Current Visit: Yes Status: Acute (3) COPD (chronic obstructive pulmonary disease) Current Visit: Yes Status: Chronic Qualifiers: COPD type: emphysema Emphysema type: panlobular Qualified Code(s): J43.1 - Panlobular emphysema (4) Iron deficiency anemia Current Visit: Yes Status: Chronic Qualifiers: Iron deficiency anemia type: chronic blood loss Qualified Code(s): D50.0 - Iron deficiency anemia secondary to blood loss (chronic) (5) Anxiety Current Visit: No Status: Chronic (6) B12 deficiency Current Visit: No Status: Chronic (7) Smoker Current Visit: Yes Status: Acute Assessment and plan: Cessation counselling when less confused. (8) CVA, old, cognitive deficits Current Visit: Yes Status: Chronic - Constitutional Vitals: Temp Pulse Resp BP Pulse Ox 97.8 F 106 18 107/68 95 10/07/16 15:59 10/07/16 15:59 10/07/16 16:12 10/07/16 15:59 10/07/16 16:12 Internal Medicine: Result - Labs CBC & Chem 7: 10/07/16 07:56 10/07/16 06:15 Labs: Short CBC 10/07/16 Range/Units 07:56 WBC 10.7 D (4.3-11.1) K/mcL Hgb 7.2 L (12.9-16.9) g/dL Hct 24.5 L (37.5-50.1) % Plt Count 247 (140-400) K/mcL Neutrophils # 9.1 H (1.6-8.9) K/mcL BMP 10/07/16 06:15 Sodium 137 Potassium 3.8 Chloride 99 Carbon Dioxide 28 BUN 48 H D Creatinine 2.25 H Glucose 93 Calcium 9.0 - ABG Interpretation ABG results: PT/INR, D-dimer PT 14.3 Seconds (9.4-12.1) H 10/07/16 06:15 - Impressions Impressions Head CT 10/07/16 16:30 IMPRESSION: No acute intracranial abnormality. Diffuse atrophic changes with findings suggesting chronic microvascular ischemia D/ / Adama Torres MD / Adama Torres MD Interpreting Provider: Adama Torres MD - Attending Attestation I examined this patient and my medical decision-making was reviewed with the Resident Physician on 10/07/16. I agree with the documented findings, disposition and treatment plan as described except to the extent set forth below. Mr. Correa is currently admitted for acute exac CHF. He has developed confusion and delirium. He is high risk due to potential for worsening cardiac and neurologic issues. Mr Correa is agitated and confused today. He is combative to some staff. No fever or chills. No CP. Dyspnea improved. at bedside and says he does this occasionally. Exam Alert. Agitated. Confused to place intermittently Mucus membranes dry Heart reg No wheeze No edema I/P 1. Acute encephalopathy 2. CHF 3. Probable dementia 4. Hx CVA Further diagnoses and plan as above.
[2016-10-07] MEDS ORDERED: Acetaminophen 325 MG TABLET PO PRN (13:54)
--- NOTE | 2016-10-07 17:54 | Neurology - Consult Note ---
Date of Encounter: 10/07/16 Time of Encounter: 17:50 Assessment and Plan (1) Confusion Current Visit: Yes Status: Acute Most likely diffuse encephalopathy on top of baseline cognitive impairment, on top of few CVA with lesion involving the right frontal region. The appears to be some worsening cognitive impairment with behavioral changes per history but his baseline cognitive function is unknown. Review of CT of head showed no acute intracranial abnormality and he has no new focal weakness. Unlikely he has new BASK[employer]ER pathology although he does have multiple risk factor for stroke. he seems responding to haldol administration without significant adverse affects. treatment is largely symptomatic and supportive/medical. Patient may need fdc care due to cognitive impairment with behavioral manifestations I will re-evaluate him at your request. History of Present Illness Chief complaint: agitation and confusion HPI: Mr. Correa is a 89 year old male with PMH significant for CVA, COPD, CHF, CAD, HTN, PVD, Chronic renal insufficiency, PAF who was initially admitted to the hospital due to increasing shortness of breath yesterday. neurology was consulted due to witnessed agitation and confusion this morning. Patient was combative and verbally threatening per medical staff. per medical records, the patient has been having some intermittent agitation and confusion occurring every few months at home. It is not known that the patient has any type of neurodegenerative disorder. Patient does have history of CVA, as evidenced on CT of head, showing focal encephalomalacia at the right frontal lobe, and bilateral occipital region. At the time of this interview the patient completed CT of head without contrast. No acute changes were noted. Patient currently is drowsy but easily arousable and is able to converse. Oriented to time and place and currently no gross psychosis. Moves all extremities. Nurse mentions that he has been oriented to place and time and now it just that he looks calmer and not agitated, after Haldol administration Past Med Surg Social Fam HX - Past Medical History Medical history: aortic aneurysm, arthritis, COPD, coronary artery disease, DVT , GI bleed, hyperlipidemia, hypertension, renal disease, other Psychiatric history: anxiety - Past Surgical History Surgical History: appendectomy, carotid endarterectomy, cholecystectomy, hip replacement, knee replacement, other - Social History Smoking Status: Current every day smoker Smokeless Tobacco Status: No Alcohol use: none Drug use: none - Family History Father Twin of Family Member: Yes, Fraternal Living Status: Hx Family Cardiac Disorders: Yes Hx Family Respiratory Disorders: Yes Hx Family Cancer: Yes Hx Family GI Disorders: No Hx Family Endocrine Disorder: No Hx Family Neuromuscular Disorders: No Hx Family Neurologic Disorders: No Hx Family HEENT Disorders: No Hx Family Autoimmune Disorders: No Medications and Allergies RX: Aspirin 81 mg PO DAILY 10/18/14 [History] RX: Docusate [Colace] 200 mg PO DAILY 10/18/14 [History] RX: Ipratropium/Albuterol Neb [Duoneb] 3 ml IH Q4H PRN 10/18/14 [History] RX: Metoprolol XL (24 HR) Succ [Toprol XL] 50 mg PO DAILY 10/18/14 [History] RX: Nitroglycerin [Nitrostat] 0.4 mg SL PRN PRN 10/18/14 [History] RX: Albuterol Sulfate [Proair Hfa] 1 puff IH Q4-6H PRN #1 inh 10/29/15 [Rx] RX: Clopidogrel [Plavix] 75 mg PO DAILY 12/24/15 [History] RX: Doxazosin [Cardura] 1 mg PO DAILY 12/24/15 [History] RX: Furosemide [Lasix] 40 mg PO DAILY 12/24/15 [History] RX: Folic Acid 1 mg PO DAILY #90 tablet 05/30/16 [Rx] RX: Isosorbide MONOnitrate (24 HR) [Imdur] 60 mg PO QAM 07/10/16 [History] RX: Pantoprazole Sodium [Protonix] 40 mg PO DAILY 07/10/16 [History] Buspirone HCl [Buspar] 5 mg PO TID 10/06/16 [History] HYDROcodone/Acet 7.5/325 mg [[place] 7.5-325 mg] 1 tab PO Q8H PRN 10/06/16 [ History] RX: Temazepam [Restoril] 15 mg PO HS 10/06/16 [History] Sucralfate [Carafate] 1 gm PO BID 10/06/16 [History] Allergies Penicillins Allergy (Verified 01/22/16 00:34) Rash morphine Adverse Reaction (Verified 01/22/16 00:34) Anxiety All Systems: A 10-system review of systems was performed and is negative for pertinent findings except as documented above in the HPI. Physical Examination - Vital Signs Vital Signs: Initial Vital Signs Temp Pulse Resp BP Pulse Ox 97.6 F 106 22 110/57 99 10/05/16 17:51 10/05/16 17:51 10/05/16 17:51 10/05/16 17:51 10/05/16 17:51 - Constitutional General appearance: comfortable - Neurologic Sensorimotor examination: other (Grossly intact) Detailed motor examination: grossly full strength in all extremities, other ( hand business writer are strong and equal. Difficult to asses lower extremites but no focal weakness noted. ) Detailed sensory examination: other (Grossly intact) Posture: other (None, No nuchal rigidity. ) Reflex and gait examination: other (Gait no assessed) Reflexes: Biceps: 1+, Triceps: 1+, Brachioradialis: 1+, Patella: 1+, Achilles: 1 + Mental Status Examination: awake, alert, oriented to place, oriented to time ( Partially, to the year and season. ), follows commands appropriately, opens eyes to voice, makes eye contact, follows simple commands, answers questions by nodding yes or no Cranial nerve examination: PERRL, EOMI, visual garcia intact (Visual field testing is difficult), corneal reflexes brisk symmetrically, sensory to face intact, mastication intact, no facial asymmetry is present, no dysarthria, hearing is intact symmetrically, soft palate elevates bilaterally upon phonation , gag reflex intact, flexes SCM and trapezius muscles symmetrically with full power, tongue protrudes midline Results - Laboratory Findings CBC and BMP: 10/07/16 07:56 10/07/16 06:15 Abnormal lab findings: Abnormal lab results RBC 2.87 M/mcL (4.19-5.50) L 10/07/16 07:56 Hgb 7.2 g/dL (12.9-16.9) L 10/07/16 07:56 Hct 24.5 % (37.5-50.1) L 10/07/16 07:56 MCH 25.1 pg (28.0-33.3) L 10/07/16 07:56 MCHC 29.4 g/dL (31.6-35.5) L 10/07/16 07:56 RDW 16.3 % (11.5-14.5) H 10/07/16 07:56 Neutrophils # 9.1 K/mcL (1.6-8.9) H 10/07/16 07:56 Immature Plt Fraction 7.8 % (1.1-6.1) H 10/07/16 07:56 PT 14.3 Seconds (9.4-12.1) H 10/07/16 06:15 BUN 48 mg/dL (8-26) H D 10/07/16 06:15 Creatinine 2.25 mg/dL (0.72-1.25) H 10/07/16 06:15 Est GFR ( Amer) 33 (> 60) L 10/07/16 06:15 Est GFR (Non-Af Amer) 28 (> 60) L 10/07/16 06:15 Troponin I 0.07 ng/mL (0-0.03) H* 10/06/16 06:47 Consult Discharge Plan - Plan Referrals: Shalom Saab, [facility] [employer] EDUCATION TEACHER [Primary Care Provider] - 10/13/16 11:00 am (Please follow up as schedule...)
[2016-10-07 19:19] LABS: Bilirubin,Urine Negative (Negative); Blood,Urine Negative (Negative); Clarity,Urine Clear (Clear); Color,Urine Yellow (Yellow); Glucose,Urine (UA) Normal (Normal); Ketones,Urine Negative (Negative); Leukocyte Esterase,Urine Negative (Negative); Nitrite,Urine Negative (Negative); PH,Urine 6.5 pH Units (5.0-8.0); Protein,Urine Negative (Neg-Trace); Specific Gravity,Urine 1.013 (1.010-1.025); Urobilinogen,Urine Normal (Normal)
[2016-10-08] MEDS ORDERED: *HR* LORazepam 2 MG/ML VIAL IVP ONE ×2 (01:56→02:06)
[2016-10-08] MEDS: Ipratropium/Albuterol Neb 3 ML IH SCH ×3 (03:43→11:05)
[2016-10-08 05:33] LABS: Basophils # 0.1 K/mcL (0.0-0.2); Basophils % 0.8 %; Eosinophils # 0.1 K/mcL (0.0-0.6); Eosinophils % 0.8 %; Hematocrit 22.8 % (37.5-50.1); Immature Granulocytes % 0.6 % (0-4); Lymphocytes # 0.7 K/mcL (0.6-4.6); Lymphocytes % 9.9 %; Mean Corpuscular HGB Conc 30.7 g/dL (31.6-35.5); Mean Corpuscular Hemoglobin 25.5 pg (28.0-33.3); Mean Corpuscular Volume 82.9 fL (83.0-100.0); Mean Platelet Volume 11.6 fL (9.4-12.4); Monocytes # 0.9 K/mcL (0.0-1.3); Monocytes % 12.2 %; Neutrophils # 5.4 K/mcL (1.6-8.9); Platelet Count 218 K/mcL (140-400); Red Blood Count 2.75 M/mcL (4.19-5.50); Red Cell Distribution Width 16.4 % (11.5-14.5); Segmented Neutrophils % 75.7 %
[2016-10-08 05:39] LABS: INR 1.4; Prothrombin Time 14.8 Seconds (9.4-12.1)
[2016-10-08 05:51] LABS: Calcium 8.7 mg/dL (8.6-10.8); Potassium 3.5 mEq/L (3.5-4.5)
[2016-10-08] MEDS ORDERED: Furosemide 20 MG TABLET PO SCH (08:00)
[2016-10-08] MEDS ORDERED: Pantoprazole 40 MG VIAL IVP SCH (09:00)
[2016-10-08] MEDS: Folic Acid 1 MG TABLET PO SCH (09:27)
[2016-10-08] MEDS: Aspirin 81 MG TAB.CHEW PO SCH (09:28)
[2016-10-08] MEDS: Isosorbide MONOnitrate (24 HR) 60 MG TAB.ER.24H PO SCH (09:28)
[2016-10-08] MEDS: Metoprolol XL (24 HR) Succ 50 MG TAB.ER.24H PO SCH (09:32)
[2016-10-08] MEDS: Nicotine 21 MG PATCH.TD24 TD SCH (09:38)
[2016-10-08 10:17] VITALS: BP 92/51
[2016-10-08] MEDS ORDERED: Ipratropium/Albuterol Neb 3 ML IH SCH ×2 (12:03→16:00)
--- NOTE | 2016-10-08 14:30 | Discharge Summary ---
<Evangelista Tomlin - Last Filed: 10/08/16 14:27> Date of Encounter: 10/08/16 Time of Encounter: 08:45 - Discharge Diagnosis (1) Confusion Priority: Primary Status: Acute Comments: Patient was very confused and agitated on 10/07. -Patient seemed to confuse whether he was at home or in the hospital. -He complained of the nursing staff "moving furniture out of his house." -He was also confused as to why his was not present. -He was ripping off his nasal cannula and was ripping at his lines. -Patient was given 2 mg of haloperidol. -Neurology was consulted. CT scan was ordered. Showed no acute changes. Showed evidence of an old infarct. Chronic microvascular disease. -Urinalysis is negative. -Patient's condition seems to have improved this morning. Patient is not as confused as he was yesterday. 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), NYHA class 3 Priority: Secondary Status: Acute Comments: Patient with increased shortness of breath. -BNP elevated to 1358, CXR shows interval development of pulmonary edema. -Last echo 07/10/16 showed LVEF of 20-25%. -Severe global LV systolic dysfunction, and indeterminate diastolic function. -Lasix 40mg IVP BID -daily weights -cardiac diet with 1.5L fluid restriction -strict I/Os -titrate O2 to maintain oxygen > 90% -Patient's condition has improved. On date of discharge, patient no longer short of breath. (3) Iron deficiency anemia Priority: Secondary Status: Chronic Comments: Assessment and plan: Patient with chronic anemia and previous transfusions. -check H/H q6 hrs -Patient's hemoglobin on date of discharge is 7.0. Qualifiers: Iron deficiency anemia type: chronic blood loss Qualified Code(s): D50.0 - Iron deficiency anemia secondary to blood loss (chronic) (4) COPD (chronic obstructive pulmonary disease) Priority: Secondary Status: Chronic Comments: Patient reports dry cough, not any worse than his baseline. -Increased shortness of breath likely due to CHF exacerbation. -albuterol nebulizer Q2hr PRN -duoneb treatments QID -titrate O2 to maintain saturation > 90%. -Denies SOB this morning. Qualifiers: COPD type: emphysema Emphysema type: panlobular Qualified Code(s): J43.1 - Panlobular emphysema (5) Chronic kidney disease Priority: Secondary Status: Chronic Comments: Patient's creatinine was initially 2.0. -Patient's creatinine has decreased to 1.95. Qualifiers: Chronic kidney disease stage: stage 3 (moderate) Qualified Code(s): N18.3 - Chronic kidney disease, stage 3 (moderate) (6) DVT prophylaxis Priority: Secondary Status: Acute Comments: Sequential compression devices. Given patient's significant anemia and concern for possible bleeding, will not give pharmacologic prophylaxis. - Discharge Medications Home Medications: Aspirin 81 mg PO DAILY 10/18/14 [History] Docusate [Colace] 200 mg PO DAILY 10/18/14 [History] Ipratropium/Albuterol Neb [Duoneb] 3 ml IH Q4H PRN 10/18/14 [History] Metoprolol XL (24 HR) Succ [Toprol XL] 50 mg PO DAILY 10/18/14 [History] Nitroglycerin [Nitrostat] 0.4 mg SL PRN PRN 10/18/14 [History] Albuterol Sulfate [Proair Hfa] 1 puff IH Q4-6H PRN #1 inh 10/29/15 [Rx] Clopidogrel [Plavix] 75 mg PO DAILY 12/24/15 [History] Doxazosin [Cardura] 1 mg PO DAILY 12/24/15 [History] Furosemide [Lasix] 40 mg PO DAILY 12/24/15 [History] Folic Acid 1 mg PO DAILY #90 tablet 05/30/16 [Rx] Isosorbide MONOnitrate (24 HR) [Imdur] 60 mg PO QAM 07/10/16 [History] Pantoprazole Sodium [Protonix] 40 mg PO DAILY 07/10/16 [History] Buspirone HCl [Buspar] 5 mg PO TID 10/06/16 [History] HYDROcodone/Acet 7.5/325 mg [[place] 7.5-325 mg] 1 tab PO Q8H PRN 10/06/16 [ History] Sucralfate [Carafate] 1 gm PO BID 10/06/16 [History] Temazepam [Restoril] 15 mg PO HS 10/06/16 [History] Allergies/Adverse Reactions: Allergies Penicillins Allergy (Verified 01/22/16 00:34) Rash morphine Adverse Reaction (Verified 01/22/16 00:34) Anxiety Procedures/tests Complete & Pending: Procedures Performed prior 72 hours Category Date Time Status CT head/brain wo con [CT] Routine Cat Scan 10/07/16 16:30 Completed Date of admission: 10/05/16 18:53 Primary care physician: Shalom Saab CNP Consults: 10/07/16 10:08 Consult to Transplant Worker [CONS] Routine Reason for SW Consult: Pt's thinks she's unable to take care of pt at home. Appreciate placement. 10/07/16 16:20 Consult to Neurology [CONS] Routine Consulting Provider: [facility] Reason for Consult: New onset confusion and agitation Call Completed: Yes Discharging clinician: Evangelista Tomlin Anticipated date of discharge: 10/08/16 - Patient Status Disposition: Home, Self-Care Condition: Fair Functional capacity at discharge: independent ambulation Overall status at discharge: patient is progressing back to baseline - Discharge Instructions Instructions: Heart Failure (DC) Follow Up With: Shalom Saab CNP [Primary Care Provider] - 10/13/16 11:00 am (Please follow up as schedule...) - Diet and Activity Activity: increase activity as tolerated Diet: advance to your usual diet Hospital course: Mr. Correa is a 89 year old male who initially presented to the ED with chief complaint of shortness of breath. He has a past medical history of COPD, hypertension, hyperlipidemia, chronic kidney disease, systolic congestive heart failure, chronic anemia, coronary artery disease, history of GI bleed. Patient reported that his shortness of breath had been worsening over the last 6 weeks, even more so over the last several days. He was unable to walk short distances without getting winded. He denied any chest pain, palpitations, or lightheadedness upon admission to the hospital. He also reported a dry, nonproductive cough, night sweats, and chills. Creatinine was elevated to 1.93 , however this is consistent with his baseline chronic kidney disease. Troponin was mildly elevated at 0.08. BNP was elevated to 1358, down from previous of 1789 in August. CXR showed interval development of pulmonary edema. Physical examination was significant for coarse sounding lungs. Patient was treated for acute exacerbation of systolic heart failure. Patient was given 60 mg of Lasix twice a day. Patient's condition improved after his first and the hospital. He was able to breathe better, and his lungs began to sound better. On his second day in the hospital, patient appeared to be very agitated in the morning. Patient was confused and combative. He was confused as to whether or not he was at home or in the hospital. He would repeatedly makes statements like "where is my " and "why are all these people moving furniture in and out of my home," referring to the nursing staff that was moving chairs out of his room. In addition to being agitated and confused, patient repeatedly ripped off his nasal cannula, yanked at his lines, ripped off his pulse ox, and would try to yank off his compression stockings. He started pushing people around. He was given 1 mg of haloperidol initially. The haloperidol seemed to help, although the patient was still agitated. Patient was given another milligram of haloperidol later in the day. Neurology was consulted for this recent onset of confusion and agitation, and he recommended a CT scan of the head. CT scan of the head showed no acute processes. CT scan however did reveal the presence of microvascular disease and evidence of an old infarct in the right frontal lobe. Urinalysis was performed and was negative. None of the medications on the patient's med list seems to be a culprit of the recent onset of agitation. Patient's came in to the hospital, and was able to provide more history. According to her, this is a regular occurrence for the patient. She states that approximately once every 3 months, patient will become agitated and confused in this manner. On the date of discharge, patient is alert and oriented 3. He is anxious to get home, and still appears somewhat drowsy and agitated. - Time Spent with Patient Total time spent providing and/or coordinating discharge services: Greater than 30 minutes (41 minutes) - Constitutional Vitals: Temp Pulse Resp BP Pulse Ox 98.6 F 102 16 92/51 97 10/08/16 10:11 10/08/16 10:11 10/08/16 11:05 10/08/16 10:11 10/08/16 11:05 General appearance: Present: mild distress, A&O X 3. Absent: cooperative - Respiratory Respiratory exam: Present: CTAB. Absent: accessory muscle use, rales, rhonchi, wheezes - Cardiovascular Cardiovascular exam: Present: RRR, +S1, +S2. Absent: diastolic murmur, gallop, rubs, systolic murmur - Extremities Exam Extremities exam: Absent: joint swelling, pedal edema - Psychiatric Psychiatric exam: Present: agitated, anxious - VTE Documentation of Mechanical Device: Intermittent pneumatic compression device <Benito Aguilar - Last Filed: 10/08/16 18:43> Date of Encounter: 10/08/16 - Discharge Diagnosis (1) Acute on chronic systolic CHF (congestive heart failure), NYHA class 3 Priority: Primary Status: Acute Comments: Pt not on KATHERIN or ARB due to CKD. (2) Acute metabolic encephalopathy Priority: Secondary Status: Acute (3) COPD (chronic obstructive pulmonary disease) Status: Chronic Qualifiers: COPD type: emphysema Emphysema type: panlobular Qualified Code(s): J43.1 - Panlobular emphysema (4) Iron deficiency anemia Status: Chronic Qualifiers: Iron deficiency anemia type: chronic blood loss Qualified Code(s): D50.0 - Iron deficiency anemia secondary to blood loss (chronic) (5) Anxiety Priority: Secondary Status: Chronic (6) B12 deficiency Priority: Secondary Status: Chronic (7) Smoker Priority: Secondary Status: Acute (8) CVA, old, cognitive deficits Priority: Secondary Status: Chronic Procedures/tests Complete & Pending: Procedures Performed prior 72 hours Category Date Time Status CT head/brain wo con [CT] Routine Cat Scan 10/07/16 16:30 Completed - Notes to Outpatient Provider Mr. Correa had issues with agitation and confusion in hospital. says this "happens occasionally" at home. Seen by neuro. Has old frontal stroke. 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 did not want him placed or home health. Date of admission: 10/05/16 18:53 Primary care physician: Shalom Saab CNP Consults: 10/07/16 10:08 Consult to Transplant Worker [CONS] Routine Reason for SW Consult: Pt's thinks she's unable to take care of pt at home. Appreciate placement. 10/07/16 16:20 Consult to Neurology [CONS] Routine Consulting Provider: [facility] Reason for Consult: New onset confusion and agitation Call Completed: Yes Hospital course: Mr. Correa is a 89 year old male - Time Spent with Patient Total time spent providing and/or coordinating discharge services: 39min - Constitutional Vitals: Temp Pulse Resp BP Pulse Ox 98.6 F 102 16 92/51 97 10/08/16 10:11 10/08/16 10:11 10/08/16 11:05 10/08/16 10:11 10/08/16 11:05 - Attending Attestation I examined this patient and my medical decision-making was reviewed with the Resident Physician on 10/08/16. I agree with the documented findings, disposition and treatment plan as described except to the extent set forth below. Mr. Correa had been admitted for acute exac CHF. He has developed some delirium while hospitalized. His feels OK with him home today. He slept better last evening. He is afebrile with stable vitals. Exam Alert. comfortable Mucus membranes dry Heart reg No wheeze. No rales. No edema Plan D/C home today. Follow up with PCP.
== END 2016-10-08 15:08 | disposition home or self-care (01) | DRG 291 ==
LOC: 2ANU → SUATTDRO 18:53 → 2ANU 10-07 19:25
PROVIDERS: ADMIT Internal Medicine; ATTEND Internal Medicine